=== PATIENT | female | born 1945 | race Caucasian/White ===

== ENCOUNTER → 2016-07-15 | Day surgery (SDC) | payer MEDICARE ==
[~2016-07-15] VITALS: Ht 167.6 cm; Wt 65.9 kg
[~2016-07-15] MED LIST: CYCLOPENTOLATE HCL 1% OPHT SOLN 2 ML BTL ONE; FISH100020; FLURBIPROFEN 0.03% OPHT SOLN 2.5 ML BTL ONE; GABA300C5 PO; GLUC100017 PO; HYALURONIDASE/LIDOCAINE/EPINEPHRINE/BUPIVACAINE 6 ML SYR ONE; HYDR-3583 PO; LIDOCAINE HCL 1% 30 ML VIAL ONE; METF500T PO; MULTTAB67 PO; PANT40TA3 PO; PHENYLEPHRINE HCL 10% OPTH SOLN 5 ML BTL ONE; PROPARACAINE HCL 0.5% OPHT SOLN 15 ML BTL ONE; PROPOFOL 200 MG/20 ML AMP ONE; SODIUM CHLORID 0.9% 500 ML INJ 500 ML ONE; TROPICAMIDE 1% OPHT SOLN 15 ML BTL ONE; VITA500C3 CHEW; VITA60003 PO; VITATAB11; [UNRECOGNIZED DRUG - CODE] PO
[2016-07-15 09:28] VITALS: BP 125/77; PULSE 61; RESP 18; TEMP 97.7; O2SAT 96
[2016-07-15 09:35] VITALS: PULSE 60
[2016-07-15] MEDS: TOBRAMYCIN/DEXAMETHASONE OPTH OINT 3.5 GM TUBE ONE ×2 (10:12→10:25)
[2016-07-15 11:05] VITALS: BP 118/73; PULSE 64; RESP 16; TEMP 98; O2SAT 99
--- NOTE | 2016-07-17 15:01 | MP ---
cc: DIONICIO SEGOVIA MD DATE OF SURGERY: 07/15/2016 [facility] #[id number] PREOPERATIVE DIAGNOSIS: Visually significant cataract right eye. POSTOPERATIVE DIAGNOSIS: Visually significant cataract right eye. OPERATION: Phacoemulsification with posterior chamber lens implantation, right eye. SURGEON: Dionicio Segovia MD ANESTHESIA: Retrobulbar with MAC. COMPLICATIONS: None. PROCEDURE: After informed consent was obtained, the patient was brought into the operative suite and placed on appropriate monitors by the Anesthesia Service. The patient had received a prior retrobulbar injection of local anesthetic by the Anesthesia Service in the holding area. The patient's operative eye was then prepped and draped in the usual sterile fashion. A wire lid speculum was placed. A paracentesis incision was made in the peripheral cornea with a 1 mm aminata keratome. The anterior chamber was filled with viscoelastic. The anterior chamber was then entered through a stepped, clear corneal incision using a sharp 3 mm aminata keratome. A circular tear capsulorrhexis was then made with a bent needle cystitome. Following hydrodissection of the lens nucleus with balanced saline, phaco-emulsification of the nucleus was performed using a modified chopping technique. The remaining cortex was removed with irrigation/aspiration. The prior two procedures were both performed using the handpieces of the [employer] phaco unit. The capsular bag was then filled with viscoelastic. The intraocular lens was then injected into the capsular bag and positioned. The type of intraocular lens and its power can be found elsewhere in this chart. The remaining viscoelastic was then removed from the anterior chamber with the IA handpiece. The anterior chamber was reformed with balanced saline. The wound was then closed securely with stromal hydration. It was found to be watertight to an intraocular pressure of at least 30 mmHg by palpation. A small amount of balanced salt solution was then removed through the paracentesis site and the intraocular pressure at the end of the case was approximately 20 by palpation. All drapes were then removed. TobraDex ointment was then placed in the eye, which was closed beneath a semi-pressure patch dressing. The patient tolerated this procedure well and left the operating room awake and alert. The patient is to follow-up in my office in the morning. MD JANICE Fleming/BJF /10:32 AM /3:00 PM
== END | disposition home or self-care (01) ==
LOC: PHSDC 08:30
PROVIDERS: ATTEND Optometrist Occupational Vision
DX: H25.811 Combined forms of age-related cataract, right eye (principal)
CPT/HCPCS: 00142; 66984; J7040; V2632

== ENCOUNTER → 2016-08-26 | Day surgery (SDC) | payer MEDICARE ==
[~2016-08-26] VITALS: Ht 167.6 cm; Wt 65.9 kg
[~2016-08-26] MED LIST changes: -LIDOCAINE HCL 1% 30 ML VIAL ONE; +LIDOCAINE HCL 1% PF 30 ML VIAL ONE; +MIDAZOLAM HCL 2 MG/2 ML VIAL ONE
[2016-08-26 07:33] VITALS: BP 142/90; PULSE 69; RESP 20; TEMP 97.4; O2SAT 100
[2016-08-26 07:48] VITALS: PULSE 70
[2016-08-26] MEDS: TOBRAMYCIN/DEXAMETHASONE OPTH OINT 3.5 GM TUBE ONE ×2 (08:47→09:05)
[2016-08-26 09:32] VITALS: BP 132/87; PULSE 75; RESP 16; TEMP 97; O2SAT 98
--- NOTE | 2016-08-26 13:38 | MP ---
cc: DIONICIO SEGOVIA M.D. [facility] #[id number] DATE OF SURGERY 08/26/2016 PREOPERATIVE DIAGNOSIS Visually significant cataract left eye. POSTOPERATIVE DIAGNOSIS Visually significant cataract left eye. OPERATION Phacoemulsification with posterior chamber lens implantation, left eye. SURGEON Dionicio Segovia MD ANESTHESIA Retrobulbar with MAC. COMPLICATIONS None PROCEDURE After informed consent was obtained, the patient was brought into the operative suite and placed on appropriate monitors by the Anesthesia Service. The patient had received a prior retrobulbar injection of local anesthetic by the Anesthesia Service in the holding area. The patient's operative eye was then prepped and draped in the usual sterile fashion. A wire lid speculum was placed. A paracentesis incision was made in the peripheral cornea with a 1 mm aminata keratome. The anterior chamber was filled with viscoelastic. The anterior chamber was then entered through a stepped, clear corneal incision using a sharp 3 mm aminata keratome. A circular tear capsulorrhexis was then made with a bent needle cystitome. Following hydrodissection of the lens nucleus with balanced saline, phacoemulsification of the nucleus was performed using a modified chopping technique. The remaining cortex was removed with irrigation/aspiration. The prior two procedures were both performed using the handpieces of the [employer] phaco unit. The capsular bag was then filled with viscoelastic. The intraocular lens was then injected into the capsular bag and positioned. The type of intraocular lens and its power can be found elsewhere in this chart. The remaining viscoelastic was then removed from the anterior chamber with the IA handpiece. The anterior chamber was reformed with balanced saline. The wound was then closed securely with stromal hydration. It was found to be watertight to an intraocular pressure of at least 30 mmHg by palpation. A small amount of balanced salt solution was then removed through the paracentesis site and the intraocular pressure at the end of the case was approximately 20 by palpation. All drapes were then removed. TobraDex ointment was then placed in the eye, which was closed beneath a semi-pressure patch dressing. The patient tolerated this procedure well and left the operating room awake and alert. The patient is to follow-up in my office in the morning. MD JANICE Fleming/JESSICA /9:50 AM /1:30 PM
== END | disposition home or self-care (01) ==
LOC: PHSDC 06:38
PROVIDERS: ATTEND Optometrist Occupational Vision
DX: H25.12 Age-related nuclear cataract, left eye (principal)
CPT/HCPCS: 00142; 66984; J7040; V2632; J2250

== ENCOUNTER → 2017-01-10 | Outpatient (CLI) | payer MEDICARE ==
[~2017-01-10] MED LIST changes: +CYCL1TAB29 PO; -CYCLOPENTOLATE HCL 1% OPHT SOLN 2 ML BTL ONE; -FLURBIPROFEN 0.03% OPHT SOLN 2.5 ML BTL ONE; -HYALURONIDASE/LIDOCAINE/EPINEPHRINE/BUPIVACAINE 6 ML SYR ONE; +HYDR-3535 PO; -LIDOCAINE HCL 1% PF 30 ML VIAL ONE; -MIDAZOLAM HCL 2 MG/2 ML VIAL ONE; +PHEN0.4T PO; -PHENYLEPHRINE HCL 10% OPTH SOLN 5 ML BTL ONE; -PROPARACAINE HCL 0.5% OPHT SOLN 15 ML BTL ONE; -PROPOFOL 200 MG/20 ML AMP ONE; -SODIUM CHLORID 0.9% 500 ML INJ 500 ML ONE; -TROPICAMIDE 1% OPHT SOLN 15 ML BTL ONE
== END ==
LOC: CPRE 12:43
PROVIDERS: ATTEND Neurological Surgery
DX: M51.36 Other intervertebral disc degeneration, lumbar region (principal); M43.16 Spondylolisthesis, lumbar region; M48.061 Spinal stenosis, lumbar region without neurogenic claudication; M99.83 Other biomechanical lesions of lumbar region; M41.9 Scoliosis, unspecified

== ENCOUNTER 2017-01-12 06:01 | Inpatient (IN) | payer MEDICARE ==
[~2017-01-12] VITALS: Ht 167.6 cm; Wt 70.2 kg
[~2017-01-12 06:01] MED LIST changes: -CYCL1TAB29 PO; -HYDR-3535 PO; -PHEN0.4T PO
[2017-01-12] MEDS ORDERED: SODIUM CHLOR 0.9% 1000 ML INJ 1,000 ML IV SCH (06:45)
[2017-01-12] MEDS ORDERED: CHLORHEXIDINE GLUCONATE 2 % 1 PACK (2 CLOTHS) TOPICAL PRN (06:45)
[2017-01-12] MEDS ORDERED: POVIDONE IODINE 5% (ANTISEPSIS KIT) 4 APPLICATIONS EACH NARE PRN (06:45)
[2017-01-12] MEDS ORDERED: METOPROLOL TARTRATE 25 MG TAB PO PRN (06:45)
[2017-01-12] MEDS ORDERED: SODIUM CHLORID 0.9% 500 ML IV PRN (06:45)
[2017-01-12] MEDS ORDERED: INSULIN HUMAN REGULAR 1,000 UNITS/10 ML VIAL SQ PRN (06:45)
[2017-01-12] MEDS ORDERED: LACTATED RINGER'S 1000 ML IV PRN (06:45)
[2017-01-12] MEDS ORDERED: VANCOMYCIN HCL 1000 MG ON-CALL/NS 250 ML IV SCH ×2 (06:45)
[2017-01-12] MEDS ORDERED: ACETAMINOPHEN 1000 MG/100 ML 100 ML IV ONE (06:57)
[2017-01-12] MEDS ORDERED: VANCOMYCIN HCL 1000 MG VIAL ONE ×2 (07:19→07:20)
[2017-01-12] MEDS ORDERED: GELFOAM SIZE 100 ONE (07:19)
[2017-01-12] MEDS ORDERED: THROMBIN (TOPICAL) 5,000 UNIT VIAL ONE (07:19)
[2017-01-12] MEDS ORDERED: BUPIVACAINE/EPINEPHRINE 0.5% 50 ML VIAL ONE (07:19)
[2017-01-12] MEDS ORDERED: FAMOTIDINE 20 MG/2 ML VIAL ONE (07:20)
[2017-01-12] MEDS ORDERED: ARTIFICIAL TEARS OPTH OINT 3.5 APPLIC/3.5 GM TUBO ONE (07:20)
[2017-01-12] MEDS ORDERED: PROPOFOL 200 MG/20 ML AMP IV ONE (12:00)
[2017-01-12] MEDS ORDERED: ONDANSETRON HCL 4 MG/2 ML VIAL IV PUSH ONE (12:00)
[2017-01-12] MEDS ORDERED: PHENYLEPH/NS 1000 MCG/10 ML SYR IV ONE (12:00)
[2017-01-12] MEDS ORDERED: GLYCOPYRROLATE 1 MG/5 ML SYRINGE IV PUSH ONE (12:00)
[2017-01-12] MEDS ORDERED: NEOSTIGMINE 3 MG/3 ML SYR IV ONE (12:00)
[2017-01-12] MEDS ORDERED: DEXAMETHASONE SOD PHOS 4 MG/ML VIAL IV ONE (12:00)
[2017-01-12] MEDS ORDERED: ROCURONIUM INJ 50 MG/5 ML SYRINGE IV PUSH ONE (12:00)
[2017-01-12] MEDS ORDERED: LIDOCAINE HCL 1% PF 5 ML AMPULE OTHER ONE (12:00)
[2017-01-12] MEDS ORDERED: MIDAZOLAM HCL 2 MG/2 ML VIAL IV ONE (12:00)
[2017-01-12] MEDS ORDERED: DO NOT ADM ANY ANTICOAGULANT DRUGS PRN (12:23)
--- NOTE | 2017-01-12 12:41 | PD.OP ---
cc: Jordan Ascencio MD Operative Report Date of Surgery: Jan 12, 2017 Preoperative Diagnosis: Intractable low back pain with neurogenic claudication and radiculopathy; severe L4-5 spinal stenosis with degenerative disc disease, scoliosis and spondylolisthesis Postoperative Diagnosis: Same Procedure: Lumbar L4-5 transforaminal interbody fusion; L4 and L5 decompressive laminectomy with facetectomy and microdiscectomy; L4-5 pedicle screw fixation; L4-5 interbody cage placement; microsurgical technique Anesthesia: Gen. endotracheal by Maxine Jara Surgeon: Bobby Mendez M.D. Tie Up Worker(s): Remington Morales Operation and Findings: Following initiation of general endotracheal anesthesia, the patient had a Monique catheter placed along with sequential compression devices. A gram of vancomycin was administered intravenously and he was turned in a prone position on a Eddie frame, on a Nazario table, and all pressure points adequately padded. The lumbosacral region was then prepped with Chloraprep and sterilely draped with Ioban along the usual sterile draping. A right paraspinal skin incision was then made extending from the L4-L5 level after infiltrating the skin with 0.5% Marcaine with epinephrine solution extending down through the fascia. The muscle fibers were split using avascular fatty plane and detached from the underlying facets, transverse process and lateral portion of lamina on the right side and a self-retaining retractor used for exposure. Intraoperative fluoroscopy was also used for level of confirmation along with microscope magnification for further dissection. There was significant facet and ligamentum flavum hypertrophy noted at the L4-5 levels along with scoliosis and spondylolisthesis. Right L4-5 facet was resected with a drill bit along with the lamina and there was severe foraminal and lateral recess stenosis from hypertrophied ligamentum flavum and facet which were decompressed bilaterally through the unilateral approach. There was significant disc height collapse along with disc protrusion also leading to the foraminal stenosis. Epidural hemostasis was achieved with bipolar cautery and Gelfoam with thrombin. Subsequently entered into the disc space at the L4-5 level with a # 15 blade and roxana were used for discectomy. I then placed PEEK cage packed with local autograft bone and more local autograft bone was packed adjacent to the cage in interspace for added interbody fusion. With placement of the cage, I was able to distract the interspace and opened up the foramen further bilaterally. Subsequently in order to facilitate the fusion and provide stabilization, pedicle screw fixation was undertaken using Weldon spine screws with entry points at the right L4-5 levels at the junction of the transverse process and facet. Subsequently using AP and lateral fluoroscopy tap and screw placement. The screws were then connected with a raf and locked in place with caps. The construct appeared very secure at this point. The area was then copiously irrigated with Vancomycin solution and powder. The retractors were removed and the bipolar cautery used for hemostasis. The muscle fascia was then approximated using 2-0 Vicryl interrupted stitches and then 3-0 Vicryl subcuticular stitches also placed in interrupted fashion. The final skin closure was completed with Mastisol and Steri-Strips. A sterile dressing was then applied. The patient then turned in supine position, extubated and taken to recovery room. There were no intraoperative complications. All sponge and needle counts were correct at the end of procedure. Estimated blood loss about 50 ml. Bobby Mendez MD Jan 12, 2017 12:41
[2017-01-12] MEDS ORDERED: CYCLOBENZAPRINE HCL 10 MG TAB PO PRN (12:45)
[2017-01-12] MEDS ORDERED: RESP: ALBUTEROL 2.5 MG/3 ML NEB (PRN) NEB (12:45)
[2017-01-12] MEDS ORDERED: ALUMINUM/MAGNESIUM/SIMETH 30 ML CUP PO PRN (12:45)
[2017-01-12] MEDS ORDERED: ZOLPIDEM TARTRATE 5 MG TAB PO PRN (12:45)
[2017-01-12] MEDS ORDERED: cloNIDine HCL 0.1 MG TAB PO PRN (12:45)
[2017-01-12] MEDS ORDERED: NALOXONE HCL 0.4 MG/ML AMP IV PUSH PRN (12:45)
[2017-01-12] MEDS ORDERED: SODIUM CHLORIDE 0.9% FLUSH 10 ML FLUSH IV FLUSH PRN (12:45)
[2017-01-12] MEDS ORDERED: CALCIUM GLUCONATE INJ 1 GM in SODIUM CHLORIDE 0.9% INJ 100 ML IV PRN (12:45)
[2017-01-12] MEDS ORDERED: MENTHOL LOZENGE BUCCAL PRN (12:45)
[2017-01-12] MEDS ORDERED: POTASSIUM CHLOR 20 MEQ PREMIX 100 ML IV PRN (12:45)
[2017-01-12] MEDS ORDERED: MAGNESIUM SULFATE INJ 2 GM in SODIUM CHLORIDE 0.9% INJ 100 ML IV PRN (12:45)
[2017-01-12] MEDS ORDERED: ONDANSETRON HCL 4 MG/2 ML VIAL IV PUSH PRN (12:45)
[2017-01-12] MEDS ORDERED: ACETAMINOPHEN 325 MG TAB PO PRN (12:45)
[2017-01-12] MEDS ORDERED: GLUCAGON 1 MG/ML VIAL OTHER PRN (12:45)
[2017-01-12] MEDS ORDERED: diphenhydrAMINE HCL 50 MG/ML VIAL IV PUSH PRN (12:45)
[2017-01-12] MEDS ORDERED: PROMETHAZINE INJ 25 MG/ML VIAL IM PRN (12:45)
[2017-01-12] MEDS: NS + KCL 20 MEQ INJ 1,000 ML IV SCH ×2 (13:03→23:00)
[2017-01-12] MEDS ORDERED: MORPHINE SULFATE 30 MG/30 ML PCA IV SCH (13:15)
[2017-01-12] MEDS ORDERED: DEXTROSE 50% IN WATER 50 ML SYRINGE IV PUSH PRN (13:15)
[2017-01-12] MEDS ORDERED: ceFAZolin INJ 1,000 MG VIAL ONE (13:18)
[2017-01-12] MEDS ORDERED: SODIUM CHLORIDE 0.9% INJ 100 ML ONE (13:18)
[2017-01-12 13:59] LABS: HEMATOCRIT 36.5 % (35.0-46.0); MEAN CELL VOLUME 92.3 FL (80.0-100.0); MEAN CORPUSCULAR HEMOGLOBIN 30.5 PG (27.0-34.0); MEAN CORPUSCULAR HGB CONC 33.1 % (32.0-36.0); PLATELET COUNT 170 TH/MM3 (150-450); RED BLOOD COUNT 3.96 MIL/MM3 (4.00-5.30); RED CELL DISTRIBUTION WIDTH 14.5 % (11.6-17.2); REVIEW FLAG FINAL; WHITE BLOOD COUNT 6.3 TH/MM3 (4.0-11.0)
[2017-01-12] MEDS: PCA - TOTAL MG MORPHINE DELIVERED PER SHIFT SCH ×2 (14:00→21:19)
[2017-01-12 14:10] LABS: POTASSIUM 4.5 MEQ/L (3.5-5.1)
[2017-01-12] MEDS: ACETAMINOPHEN/HYDROcodone 325 MG/10 MG TAB PO PRN (15:00)
--- NOTE | 2017-01-12 15:10 | RADRPT ---
EXAM DATE/TIME: 01/12/2017 08:58 [facility] COMPARISON: No previous studies available for comparison. INDICATIONS : Fusion L4,L5 with screw and raf placement. MEDICAL HISTORY : None. SURGICAL HISTORY : None. ENCOUNTER: Initial ACUITY: 1 day PAIN SCORE: Non-responsive. LOCATION: Lumbar spine. FINDINGS: There is anterior and posterior fusion with pedicle screws and interbody graft from L4-L5. CONCLUSION: 1. Postsurgical changes as above. Jose Landin MD on January 12, 2017 at 15:08 Board Certified Radiologist. This report was verified electronically.
[2017-01-12] MEDS: GABAPENTIN 300 MG CAP PO SCH ×2 (15:13→18:03)
[2017-01-12 16:33] VITALS: BP 151/71; PULSE 77; RESP 20; TEMP 97.4; O2SAT 100
[2017-01-12] MEDS: INSULIN NovoLIN REGULAR SUPPLEMENTAL SCALE SQ SCH ×2 (17:00→21:00)
[2017-01-12 20:26] VITALS: BP 131/67; PULSE 71; RESP 18; TEMP 97.7; O2SAT 98
[2017-01-12] MEDS: DOCUSATE SODIUM 100 MG CAP PO SCH (21:00)
[2017-01-12] MEDS: SODIUM CHLORIDE 0.9% FLUSH 10 ML FLUSH IV FLUSH SCH (21:00)
[2017-01-13 01:59] VITALS: BP 128/67; PULSE 70; RESP 18; TEMP 97.7; O2SAT 99
[2017-01-13] MEDS: ACETAMINOPHEN/HYDROcodone 325 MG/10 MG TAB PO PRN ×3 (03:45→19:55)
[2017-01-13 05:35] VITALS: BP 115/65; PULSE 71; RESP 20; TEMP 99.5; O2SAT 100
[2017-01-13] MEDS: PCA - TOTAL MG MORPHINE DELIVERED PER SHIFT SCH (05:39)
[2017-01-13] MEDS: INSULIN NovoLIN REGULAR SUPPLEMENTAL SCALE SQ SCH ×4 (08:00→21:00)
[2017-01-13] MEDS: POLYETHYLENE GLYCOL 17 GM PKG PO SCH (09:00)
[2017-01-13] MEDS: SODIUM CHLORIDE 0.9% FLUSH 10 ML FLUSH IV FLUSH SCH ×2 (09:00→21:00)
--- NOTE | 2017-01-13 09:48 | HHI.NSPN ---
(Frederic Baez) History Chief Complaint: Incisional pain and pain in posterolateral LEs. (Frederic Baez) Interval History 01/13/17: Pt underwent a L4/L5 decompressive laminectomy with facetectomy and microdiscectomy with TLIF with cage and pedicle screw fixation. She states yesterday was a good day and today she is much more painful. She complains of incisional back pain radiating into the posterolateral thighs more than the calfs. She states she doesn't think she can get oob today with PT. Currently we are waiting for back brace. (Frederic Baez) Review of Systems General: Negative for: fever, chills, insomnia Respiratory: Negative for: shortness of breath, cough, sputum Cardiovascular: Negative for: chest pain Gastrointestinal: Negative for: nausea, vomitting, diarrhea, constipation ( Frederic Baez) Exam Results Vital Signs Date Time Temp Pulse Resp B/P (MAP) Pulse Ox O2 Delivery O2 Flow Rate FiO2 01/13/17 05:35 99.5 71 20 115/65 (82) 100 01/12/17 15:45 Room Air 01/12/17 14:00 2 Intake and Output 01/13/17 01/13/17 01/14/17 08:00 16:00 00:00 Output Total 820 ml Balance -820 ml (Frederic Baez) Physical Examination General: Pt resting in bed and at times gets spasms in her legs and appears uncomfortable. Resp: CTA bilaterally Heart: NSR no murmurs Abd: Soft positive bs Skin: Pt log rolled incision clean and dry. No signs of infection. New bandage placed. Muscle: Moves LEs with right 4/5 EHL weakness otherwise 5/5 although laying in bed. Neuro: Pt awake and alert. Follows commands well. Speech clear and appropriate. (Frederic Baez) Lab, Micro, Other Results Last Impressions Lumbar Spine X-Ray 01/12/17 0000 Signed Impressions: Service Date/Time: Thursday, January 12, 2017 08:58 - CONCLUSION: 1. Postsurgical changes as above. Jose Landin MD Laboratory Tests Test 01/12/17 13:45 White Blood Count 6.3 TH/MM3 Red Blood Count 3.96 MIL/MM3 Hemoglobin 12.1 GM/DL Hematocrit 36.5 % Mean Corpuscular Volume 92.3 FL Mean Corpuscular Hemoglobin 30.5 PG Mean Corpuscular Hemoglobin Concent 33.1 % Red Cell Distribution Width 14.5 % Platelet Count 170 TH/MM3 Mean Platelet Volume 8.6 FL Blood Urea Nitrogen 16 MG/DL Creatinine 0.99 MG/DL Random Glucose 124 MG/DL Calcium Level 8.6 MG/DL Sodium Level 143 MEQ/L Potassium Level 4.5 MEQ/L Chloride Level 109 MEQ/L Carbon Dioxide Level 30.0 MEQ/L Anion Gap 4 MEQ/L Estimat Glomerular Filtration Rate 55 ML/MIN (Frederic Baez) Medical Decision Making Impression and Plan A: 71 y/o FM s/p L4 and L5 decompressive laminectomy with facetectomy and microdiscectomy with cage and pedicle screw fixation. P: Continue with pain control Encouraged pt to ask for muscle relaxants to help with muscle spasms. Continue with Neurontin tid. Continue with LE strengthening exercises. If brace arrives possibly try to get up if pain better controlled. (Frederic Baez) Attending Statement The exam, history, and the medical decision-making described in the above note were completed with the assistance of the mid-level provider. I reviewed and agree with the findings presented. I attest that I had a [id number] encounter with the patient on the same day, and personally performed and documented my assessment and findings in the medical record. Relates incisional pain and does not want to use a morphine ADOLESCENT COORDINATOR as it does not seem to help. We'll DC ADOLESCENT COORDINATOR and placed on scheduled the Lortab when necessary Dilaudid for breakthrough pain. (Bobby Mendez MD) Frederic Baez Jan 13, 2017 09:48 Bobby Mendez MD Jan 13, 2017 16:18
[2017-01-13] MEDS: GABAPENTIN 300 MG CAP PO SCH ×3 (09:49→18:06)
[2017-01-13] MEDS: PANTOPRAZOLE SOD 40 MG DELAYED RELEASE TAB PO SCH (09:49)
[2017-01-13] MEDS: MULTIVITAMIN TAB PO SCH (09:49)
[2017-01-13] MEDS: DOCUSATE SODIUM 100 MG CAP PO SCH ×2 (09:49→21:06)
[2017-01-13] MEDS ORDERED: ACETAMINOPHEN/HYDROcodone 325 MG/10 MG TAB PO SCH (11:00)
[2017-01-13] MEDS ORDERED: HYDROmorphone HCL PF 1 MG/ML VIAL IV PUSH PRN ×2 (11:30→16:00)
[2017-01-13] MEDS: CYCLOBENZAPRINE HCL 10 MG TAB PO SCH ×2 (11:59→18:06)
[2017-01-13] MEDS ORDERED: HYDROmorphone HCL PF 1 MG/ML VIAL IV PUSH ONE (12:00)
[2017-01-13] MEDS: ACETAMINOPHEN/HYDROcodone 325 MG/10 MG TAB PO SCH ×3 (12:00→21:07)
[2017-01-13 12:16] VITALS: BP 131/59; PULSE 76; RESP 20; TEMP 97.6; O2SAT 99
[2017-01-13 16:19] VITALS: BP 146/70; PULSE 84; RESP 20; TEMP 98.1; O2SAT 95
[2017-01-13 17:54] VITALS: O2SAT 95
[2017-01-13 20:15] VITALS: BP 133/65; PULSE 68; RESP 18; TEMP 98.4; O2SAT 97
[2017-01-14] MEDS: GABAPENTIN 300 MG CAP PO SCH ×4 (00:36→17:40)
[2017-01-14] MEDS: ACETAMINOPHEN/HYDROcodone 325 MG/10 MG TAB PO SCH ×6 (00:37→20:55)
[2017-01-14 00:57] VITALS: BP 161/73; PULSE 76; RESP 16; TEMP 99.4; O2SAT 95
[2017-01-14] MEDS: ACETAMINOPHEN/HYDROcodone 325 MG/10 MG TAB PO PRN (02:15)
[2017-01-14] MEDS: CYCLOBENZAPRINE HCL 10 MG TAB PO SCH ×3 (02:15→17:40)
[2017-01-14 06:00] VITALS: BP 143/73; PULSE 75; RESP 16; TEMP 97.6; O2SAT 96
[2017-01-14] MEDS: MULTIVITAMIN TAB PO SCH (08:46)
[2017-01-14] MEDS: metFORMIN HCL 500 MG TAB PO SCH (08:47)
[2017-01-14] MEDS: PANTOPRAZOLE SOD 40 MG DELAYED RELEASE TAB PO SCH (08:47)
[2017-01-14] MEDS: SODIUM CHLORIDE 0.9% FLUSH 10 ML FLUSH IV FLUSH SCH ×2 (08:47→20:55)
[2017-01-14] MEDS: INSULIN NovoLIN REGULAR SUPPLEMENTAL SCALE SQ SCH ×4 (08:47→19:46)
[2017-01-14] MEDS: DOCUSATE SODIUM 100 MG CAP PO SCH ×2 (08:47→20:55)
[2017-01-14] MEDS: POLYETHYLENE GLYCOL 17 GM PKG PO SCH (08:48)
[2017-01-14 08:52] VITALS: BP 118/63; PULSE 70; RESP 20; TEMP 98.2; O2SAT 96
[2017-01-14] MEDS ORDERED: HYDR-3535 PO (09:01)
[2017-01-14] MEDS ORDERED: CYCL1TAB29 PO (09:01)
--- NOTE | 2017-01-14 12:04 | HHI.NSPN ---
(Frederic Baez) History Chief Complaint: Incisional pain and pain in posterolateral LEs. (Frederic Baez) Interval History 01/13/17: Pt underwent a L4/L5 decompressive laminectomy with facetectomy and microdiscectomy with TLIF with cage and pedicle screw fixation. She states yesterday was a good day and today she is much more painful. She complains of incisional back pain radiating into the posterolateral thighs more than the calfs. She states she doesn't think she can get oob today with PT. Currently we are waiting for back brace. 01/14/17: Pt awake and alert. States she is feeling better today. She continues to have a lot of pain but better controlled today than yesterday. She agrees she needs rehab secondary to pain and deconditioning with risk of falls. She states she has pain radiating in the posterolateral LEs but controlled better. (Frederic Baez) Review of Systems General: Negative for: fever, chills, insomnia Respiratory: Negative for: shortness of breath, cough, sputum Cardiovascular: Negative for: chest pain Gastrointestinal: Negative for: nausea, vomitting, diarrhea, constipation ( Frederic Baez) Exam Results Vital Signs Date Time Temp Pulse Resp B/P (MAP) Pulse Ox O2 Delivery O2 Flow Rate FiO2 01/14/17 08:52 98.2 70 20 118/63 (81) 96 01/12/17 15:45 Room Air 01/12/17 14:00 2 Intake and Output 01/14/17 01/14/17 01/15/17 08:00 16:00 00:00 Output Total 2600 ml Balance -2600 ml (Frederic Baez) Physical Examination General: Pt resting in bed and at times gets spasms in her legs when trying to move. Resp: CTA bilaterally Heart: NSR no murmurs Abd: Soft positive bs Skin: Pt sitting up in chair with brace in place. Discussed with RN will change when back in bed. Muscle: Moves LEs with right 4/5 EHL weakness otherwise 5/5. She is very slow and painful going to sitting position. Neuro: Pt awake and alert. Follows commands well. Speech clear and appropriate. (Frederic Baez) Lab, Micro, Other Results Last Impressions Lumbar Spine X-Ray 01/12/17 0000 Signed Impressions: Service Date/Time: Thursday, January 12, 2017 08:58 - CONCLUSION: 1. Postsurgical changes as above. Jose Landin MD (Frederic Baez) Medical Decision Making Impression and Plan A: 71 y/o FM s/p L4 and L5 decompressive laminectomy with facetectomy and microdiscectomy with cage and pedicle screw fixation. P: Continue with pain control. Continue with PT Rehab placement tomorrow. Orders written. (Frederic Baez) Attending Statement The exam, history, and the medical decision-making described in the above note were completed with the assistance of the mid-level provider. I reviewed and agree with the findings presented. I attest that I had a [id number] encounter with the patient on the same day, and personally performed and documented my assessment and findings in the medical record. (Bobby Mendez MD) Frederic Baez Jan 14, 2017 12:04 Bobby Mendez MD Jan 14, 2017 12:39
[2017-01-14 12:52] VITALS: BP 92/57; PULSE 77; RESP 20; TEMP 97.3; O2SAT 94
[2017-01-14 17:08] VITALS: BP 140/70; PULSE 85; RESP 20; TEMP 98; O2SAT 94
[2017-01-14 20:29] VITALS: BP 116/72; PULSE 81; RESP 18; TEMP 97.5; O2SAT 96
[2017-01-15 00:12] VITALS: BP 160/77; PULSE 88; RESP 18; TEMP 98.1; O2SAT 96
[2017-01-15] MEDS: GABAPENTIN 300 MG CAP PO SCH ×4 (02:11→17:51)
[2017-01-15] MEDS: ACETAMINOPHEN/HYDROcodone 325 MG/10 MG TAB PO SCH ×6 (02:11→21:36)
[2017-01-15 04:00] VITALS: BP 138/88; PULSE 87; RESP 18; TEMP 98.4; O2SAT 97
[2017-01-15] MEDS: ACETAMINOPHEN/HYDROcodone 325 MG/10 MG TAB PO PRN (04:05)
[2017-01-15] MEDS: CYCLOBENZAPRINE HCL 10 MG TAB PO SCH ×3 (04:05→17:51)
[2017-01-15 08:00] VITALS: BP 100/58; PULSE 79; RESP 16; TEMP 98.2; O2SAT 96
[2017-01-15] MEDS: MAGNESIUM HYDROXIDE SUSP 30 ML CUP PO PRN (09:03)
[2017-01-15] MEDS: MULTIVITAMIN TAB PO SCH (09:03)
[2017-01-15] MEDS: DOCUSATE SODIUM 100 MG CAP PO SCH (09:03)
[2017-01-15] MEDS: POLYETHYLENE GLYCOL 17 GM PKG PO SCH (09:03)
[2017-01-15] MEDS: PANTOPRAZOLE SOD 40 MG DELAYED RELEASE TAB PO SCH (09:03)
[2017-01-15] MEDS: INSULIN NovoLIN REGULAR SUPPLEMENTAL SCALE SQ SCH ×4 (09:04→21:00)
[2017-01-15] MEDS: SODIUM CHLORIDE 0.9% FLUSH 10 ML FLUSH IV FLUSH SCH ×2 (09:04→21:36)
[2017-01-15] MEDS: metFORMIN HCL 500 MG TAB PO SCH (09:05)
[2017-01-15 12:00] VITALS: BP 106/63; PULSE 78; RESP 16; TEMP 98.4; O2SAT 96
[2017-01-15] MEDS ORDERED: MAGNESIUM CITRATE SOLN 300 ML BTL PO ONE ×2 (13:15→16:15)
[2017-01-15 16:00] VITALS: BP 119/77; PULSE 79; RESP 18; TEMP 97.6; O2SAT 94
[2017-01-15] MEDS ORDERED: BISACODYL 10 MG SUPP RECTAL ONE (16:15)
--- NOTE | 2017-01-15 17:08 | HHI.NSPN ---
History Chief Complaint: Incisional pain and pain in posterolateral LEs. Interval History Postop L4-5 TLIF on 01/13/17. Complains of significant back pain. Intermittent aching, and numbness paresthesias of the lower extremities unchanged compared to preoperatively. No complaint of bowel or bladder dysfunction. Exam Results Vital Signs Date Time Temp Pulse Resp B/P (MAP) Pulse Ox O2 Delivery O2 Flow Rate FiO2 01/15/17 16:00 97.6 79 18 119/77 (91) 94 01/12/17 15:45 Room Air 01/12/17 14:00 2 Intake and Output 01/15/17 01/15/17 01/16/17 08:00 16:00 00:00 Intake Total 960 ml Output Total 340 ml Balance -340 ml 960 ml Physical Examination General: Pt resting in bed and at times gets spasms in her legs when trying to move. Resp: CTA bilaterally Heart: NSR no murmurs Abd: Soft positive bs Skin: Dressing dry and intact Muscle: Good strength on major flexion and extension groups in the lower extremities. Complains of low back pain with proximal lower extremity motor testing Sensation intact light touch throughout the lower extremities Neuro: Pt awake and alert. Follows commands well. Speech clear and appropriate. Medical Decision Making Impression and Plan Impression: Stable neurologic exam following L4 5 interbody fusion. Plan: Discussed with patient Discussed with nursing staff Patient tentatively scheduled for transfer to inpatient rehabilitation today, but has not had a bowel movement which is required for the transfer. Additional medications given. Patient states she takes 2 bottles of mag citrate at home, this was given to her today. Fransisco Chester MD Jan 15, 2017 17:08
[2017-01-15] MEDS: DOCUSATE SODIUM 50 MG/SENNA 8.6 MG TAB PO SCH ×2 (17:39→21:35)
[2017-01-15 20:00] VITALS: BP 146/70; PULSE 84; RESP 20; TEMP 98.4; O2SAT 96
[2017-01-16] VITALS: BP 165/77; PULSE 93; RESP 20; TEMP 97.7; O2SAT 95
[2017-01-16] MEDS: ACETAMINOPHEN/HYDROcodone 325 MG/10 MG TAB PO SCH ×4 (00:23→12:57)
[2017-01-16] MEDS: GABAPENTIN 300 MG CAP PO SCH ×3 (00:23→12:57)
[2017-01-16] MEDS: CYCLOBENZAPRINE HCL 10 MG TAB PO SCH ×2 (03:53→12:56)
[2017-01-16 04:00] VITALS: BP 184/86; PULSE 91; RESP 20; TEMP 98.2; O2SAT 94
[2017-01-16] MEDS: MAGNESIUM HYDROXIDE SUSP 30 ML CUP PO PRN (04:03)
[2017-01-16 06:42] VITALS: BP 157/85; PULSE 94; O2SAT 94
[2017-01-16 08:00] VITALS: BP 157/74; PULSE 89; RESP 20; TEMP 97.3; O2SAT 98
--- NOTE | 2017-01-16 08:20 | RADRPT ---
EXAM DATE/TIME: 01/16/2017 07:58 [facility] COMPARISON: CT ABDOMEN & PELVIS W CONTRAST, November 30, 2014, 16:01. INDICATIONS : Trauma; fall. RADIATION DOSE: 31.92 CTDIvol (mGy) MEDICAL HISTORY : Subarachnoid hemorrhage. SURGICAL HISTORY : Appendectomy. ENCOUNTER: Initial ACUITY: 1 day PAIN SCALE: 5/10 LOCATION: cranial TECHNIQUE: Multiple contiguous axial images were obtained of the head. Using automated exposure control and adj ustment of the mA and/or kV according to patient size, radiation dose was kept as low as reasonably a chievable to obtain optimal diagnostic quality images. DICOM format image data is available electro nically for review and comparison. FINDINGS: CEREBRUM: The ventricles are normal for age. No evidence of midline shift, mass lesion, hemorrhage or acute in farction. No extra-axial fluid collections are seen. POSTERIOR FOSSA: The cerebellum and brainstem are intact. The 4th ventricle is midline. The cerebellopontine angle i s unremarkable. EXTRACRANIAL: The visualized portion of the orbits is intact. SKULL: The calvaria is intact. No evidence of skull fracture. CONCLUSION: 1. No acute intracranial abnormality. Von Becerril MD on January 16, 2017 at 8:18 Board Certified Radiologist. This report was verified electronically.
[2017-01-16] MEDS: INSULIN NovoLIN REGULAR SUPPLEMENTAL SCALE SQ SCH ×2 (08:45→13:01)
[2017-01-16] MEDS: POLYETHYLENE GLYCOL 17 GM PKG PO SCH (08:49)
[2017-01-16] MEDS: PANTOPRAZOLE SOD 40 MG DELAYED RELEASE TAB PO SCH (08:49)
[2017-01-16] MEDS: SODIUM CHLORIDE 0.9% FLUSH 10 ML FLUSH IV FLUSH SCH (08:49)
[2017-01-16] MEDS: DOCUSATE SODIUM 50 MG/SENNA 8.6 MG TAB PO SCH (08:49)
[2017-01-16] MEDS: metFORMIN HCL 500 MG TAB PO SCH (08:49)
[2017-01-16] MEDS: MULTIVITAMIN TAB PO SCH (08:49)
--- NOTE | 2017-01-16 11:14 | RADRPT ---
EXAM DATE/TIME: 01/16/2017 10:56 [facility] COMPARISON: SPINE LUMBAR LTD (AP & LAT), January 12, 2017, 8:58. INDICATIONS : Evaluate for obstruction MEDICAL HISTORY : Subarachnoid hemorrhage SURGICAL HISTORY : Appendectomy. ENCOUNTER: Initial ACUITY: 1 day PAIN SCORE: 0/10 LOCATION: Abdomen FINDINGS: The examination demonstrates gaseous distention of multiple loops of colon. There is stool evident wi thin the rectum. Fecal impaction is not excluded. No air-fluid levels are seen to indicate destruction. No free air is present. There are severe degenerative and scoliotic changes within the lumbar spine. There's been previous fu andreas across the L4-5 level. CONCLUSION: 1. Gaseous distention of the colon with considerable stool in the rectum. This can suggest a fecal im paction. 2. No free air identified. Von Becerril MD on January 16, 2017 at 11:12 Board Certified Radiologist. This report was verified electronically.
[2017-01-16 12:00] VITALS: BP 112/63; PULSE 91; RESP 20; TEMP 97.5; O2SAT 98
--- NOTE | 2017-01-16 13:22 | HHI.NSPN ---
History Chief Complaint: Incisional pain and pain in posterolateral LEs. Interval History Postop L4-5 TLIF on 01/13/17. Complains of significant back pain. Intermittent aching, and numbness paresthesias of the lower extremities unchanged compared to preoperatively. No complaint of bowel or bladder dysfunction. 01/16/17: The patient now trying to get out of bed at around 6:00 this morning. She hit her forehead. No loss of consciousness. No complaint of headache nausea vomiting speech difficulty memory loss blurred vision diplopia. No new pain weakness or numbness in the extremities. She continues to have some aching and cramping in the lower extremity somewhat diffuse which was present before surgery but seems a little worse afterwards. He will follow bladder dysfunction reported. Exam Results Vital Signs Date Time Temp Pulse Resp B/P (MAP) Pulse Ox O2 Delivery O2 Flow Rate FiO2 01/16/17 06:42 94 157/85 (109) 94 01/16/17 04:00 98.2 20 01/12/17 15:45 Room Air 01/12/17 14:00 2 Physical Examination General: Pt resting in bed and at times gets spasms in her legs when trying to move. Resp: CTA bilaterally Heart: NSR no murmurs Abd: Soft positive bs Skin: Dressing dry and intact. Small abrasion left forehead Muscle: Good strength on major flexion and extension groups in the lower extremities. Complains of low back pain with proximal lower extremity motor testing Sensation intact light touch throughout the lower extremities Neuro: Pt awake and alert. Follows commands well. Speech clear and appropriate. Lab, Micro, Other Results 01/16/[address] scan head images reviewed by the undersigned. No significant abnormalities Head CT 01/16/17 0000 Signed Impressions: Service Date/Time: Monday, January 16, 2017 07:58 - CONCLUSION: 1. No acute intracranial abnormality. Von Becerril MD Medical Decision Making Impression and Plan Impression: Stable neurologic exam following L4 5 interbody fusion. No new problems following a fall this morning. CT scan had normal. She had a bowel movement today. Plan: Discussed with patient Discussed with nursing staff She is stable for discharge to rehabilitation today. Signs and symptoms to watch for were discussed. Fransisco Chester MD Jan 16, 2017 13:22
== END 2017-01-16 15:41 | DRG 460 ==
LOC: HSDI 06:01 → N05A 16:13
PROVIDERS: ADMIT Neurological Surgery; ATTEND Neurological Surgery
PROC: 0SB20ZZ Excision of Lumbar Vertebral Disc, Open Approach (ICD-10-PCS; 2017-01-12)
PROC: 0SG00AJ Fusion of Lumbar Vertebral Joint with Interbody Fusion Device, Posterior Approach, Anterior Column, Open Approach (ICD-10-PCS; principal; 2017-01-12 08:28)
DX: M51.16 Intervertebral disc disorders with radiculopathy, lumbar region (principal); N31.9 Neuromuscular dysfunction of bladder, unspecified; E11.9 Type 2 diabetes mellitus without complications; M41.9 Scoliosis, unspecified; M48.062 Spinal stenosis, lumbar region with neurogenic claudication; M43.16 Spondylolisthesis, lumbar region; M99.83 Other biomechanical lesions of lumbar region; M62.838 Other muscle spasm; S00.81XA Abrasion of other part of head, initial encounter; F17.200 Nicotine dependence, unspecified, uncomplicated; W06.XXXA Fall from bed, initial encounter; Y92.230 Patient room in hospital as the place of occurrence of the external cause; Z79.84 Long term (current) use of oral hypoglycemic drugs
CPT/HCPCS: 70450; 72100; 74000; 76000; 80048; 82948; 85027; 86850; 86900; 86901; 94150; C1713; J0131; J0690; J1100; J1170; J2250; J2270; J2370; J2405; J2710; J3010; J3370; J3480; J7120; L0484

== ENCOUNTER 2017-01-25 17:52 | Inpatient (IN) | payer MEDICARE ==
[~2017-01-25] VITALS: Ht 167.6 cm; Wt 68.0 kg
[~2017-01-25 17:52] MED LIST changes: +CYCL1TAB29 PO; -FISH100020; +HYDR-3535 PO; -HYDR-3583 PO; -VITA500C3 CHEW; -VITA60003 PO; -VITATAB11; -[UNRECOGNIZED DRUG - CODE] PO
[2017-01-25 17:58] VITALS: BP 121/76; PULSE 102; RESP 16; TEMP 97.5; O2SAT 98
--- NOTE | 2017-01-25 18:10 | PD ---
HPI Chief Complaint: GI Complaint Time Seen by Provider: 18:02 Travel History International Travel<30 days: No Contact w/Intl Traveler<30days: No Traveled to known affect area: No History of Present Illness HPI 71 y/o female presents with nonbloody emesis, diffuse abdominal pain and distention over the past couple of days. She states she recently just got discharged from the hospital for back surgery. She states she is on hydrocodone for pain control but has been on that for multiple years given she has chronic back pain. She states the nurse that came to visit her was concerned she had a bowel blockage given her symptoms and wanted her to come here to get checked out. She denies any other concurrent complaints. Duration is couple of days. She states her last bowel movement or gas was Tuesday. PFSH Past Medical History Hx Anticoagulant Therapy: No Cancer: No Cardiovascular Problems: No Chemotherapy: No Cerebrovascular Accident: No Diabetes: Yes (TYPE II) Diminished Hearing: No Endocrine: No Genitourinary: No Hepatitis: Yes (ACUTE HEP A) Hiatal Hernia: No Herniated Disk: Yes Immune Disorder: No Musculoskeletal: Yes (CHRONIC BACK PAIN/HERNIATED DISC, TINGLING LOWER BACK, R HIP) Neurologic: No Psychiatric: No Reproductive: No Respiratory: No Thyroid Disease: No Past Surgical History Abdominal Surgery: Yes (APPENDECTOMY, REDUCTION OF INTUSSUSSEPTION) AICD: No Body Medical Devices: RIGHT EYE ORBIT Cardiac Surgery: No Ear Surgery: No Endocrine Surgery: No Eye Surgery: Yes (FACIAL FRACTURE NEAR EYE,BILATERAL CATARACT EXT.) Genitourinary Surgery: No Gynecologic Surgery: No Hysterectomy: No Joint Replacement: No Oral Surgery: No Pacemaker: No Social History Alcohol Use: No Tobacco Use: Yes (1/2 PPD) Substance Use: No Allergies-Medications (Allergen,Severity, Reaction): Coded Allergies: No Known Allergies (Unverified , 01/25/17) Reported Meds & Prescriptions Reported Meds & Active Scripts Active Lortab (Hydrocodone-Acetaminophen) 10-325 Mg Tab 1 Tab PO Q4H PRN Flexeril (Cyclobenzaprine HCl) 10 Mg Tab 10 Mg PO TID Gabapentin 300 Mg Cap 300 Mg PO TID Reported Pantoprazole (Pantoprazole Sodium) 40 Mg Tab 40 Mg PO DAILY PRN Multiple Vitamin 1 Tab 1 Tab PO DAILY Metformin (Metformin HCl) 500 Mg Tab 500 Mg PO DAILY With a meal Glucosamine (Glucosamine Sulfate) 1,000 Mg Cap 1,000 Mg PO DAILY Review of Systems Except as stated in HPI: all other systems reviewed are Neg Physical Exam Narrative GENERAL: Well-nourished, well-developed patient. SKIN: Warm and dry. HEAD: Normocephalic and atraumatic. EYES: No injection or drainage. ENT: No nasal drainage noted. NECK: Supple, trachea midline. CARDIOVASCULAR: Regular rate and rhythm RESPIRATORY: No increased effort. No accessory muscle use. GASTROINTESTINAL: Abdomen soft, mild distention, diffusely tender, no rebound EXTREMITIES: No edema. NEUROLOGICAL: Awake and alert. Moves all extremities and sensory grossly within normal limits. Normal speech. Data Data Last Documented VS Vital Signs Date Time Temp Pulse Resp B/P (MAP) Pulse Ox O2 Delivery O2 Flow Rate FiO2 01/25/17 17:58 97.5 102 16 121/76 (91) 98 Orders Orders Complete Blood Count With Diff (01/25/17 18:06) Comprehensive Metabolic Panel (01/25/17 18:06) Lipase (01/25/17 18:06) Urinalysis - C+S If Indicated (01/25/17 18:06) Ct Abd/Pel W Iv Contrast(Rout) (01/25/17 18:06) Iv Access Insert/Monitor (01/25/17 18:06) Ecg Monitoring (01/25/17 18:06) Oximetry (01/25/17 18:06) Ondansetron Inj (Zofran Inj) (01/25/17 18:15) Sodium Chloride 0.9% Flush (Ns Flush) (01/25/17 18:15) Oral Contrast - Adult (01/25/17 18:11) Diatrizoate Liq ( Gastroview Liq) (01/25/17 18:20) Sodium Chlor 0.9% 1000 Ml Inj (Ns 1000 M (01/25/17 18:45) Labs Laboratory Tests Test 01/25/17 18:17 White Blood Count 12.6 TH/MM3 Red Blood Count 4.76 MIL/MM3 Hemoglobin 14.3 GM/DL Hematocrit 42.2 % Mean Corpuscular Volume 88.7 FL Mean Corpuscular Hemoglobin 30.0 PG Mean Corpuscular Hemoglobin Concent 33.8 % Red Cell Distribution Width 13.4 % Platelet Count 559 TH/MM3 Mean Platelet Volume 7.6 FL Neutrophils (%) (Auto) 76.1 % Lymphocytes (%) (Auto) 14.7 % Monocytes (%) (Auto) 7.5 % Eosinophils (%) (Auto) 0.7 % Basophils (%) (Auto) 1.0 % Neutrophils # (Auto) 9.7 TH/MM3 Lymphocytes # (Auto) 1.8 TH/MM3 Monocytes # (Auto) 0.9 TH/MM3 Eosinophils # (Auto) 0.1 TH/MM3 Basophils # (Auto) 0.1 TH/MM3 CBC Comment DIFF FINAL Differential Comment Blood Urea Nitrogen 36 MG/DL Creatinine 1.40 MG/DL Random Glucose 146 MG/DL Total Protein 8.5 GM/DL Albumin 3.8 GM/DL Calcium Level 10.7 MG/DL Alkaline Phosphatase 130 U/L Aspartate Amino Transf (AST/SGOT) 22 U/L Alanine Aminotransferase (ALT/SGPT) 23 U/L Total Bilirubin 0.6 MG/DL Sodium Level 128 MEQ/L Potassium Level 3.3 MEQ/L Chloride Level 82 MEQ/L Carbon Dioxide Level 33.3 MEQ/L Anion Gap 13 MEQ/L Estimat Glomerular Filtration Rate 37 ML/MIN Lipase 139 U/L [facility] Medical Decision Making Medical Screen Exam Complete: Yes Emergency Medical Condition: Yes Medical Record Reviewed: Yes (past history confirm, prior visits reviewed) Differential Diagnosis Obstruction, ileus, constipation Narrative Course Will check blood work, urinalysis, CT scan abdominal pelvis and dose with Zofran and reevaluate Physician Communication Physician Communication oncoming er physician to follow workup and reeval Ellie Oscar MD Jan 25, 2017 18:10
[2017-01-25] MEDS ORDERED: ONDANSETRON HCL 4 MG/2 ML VIAL IVP ONE (18:15)
[2017-01-25] MEDS ORDERED: DIATRIZOATE MEGLUM/DIATRIZOATE SOD 9 ML CUP ONE (18:20)
[2017-01-25 18:28] LABS: AUTOMATED NEUTROPHIL # 9.7 TH/MM3 (1.8-7.7); BASOPHIL # 0.1 TH/MM3 (0-0.2); EOSINOPHIL # 0.1 TH/MM3 (0-0.4); EOSINOPHIL % 0.7 % (0.0-4.0); HEMATOCRIT 42.2 % (35.0-46.0); HEMO FLAGS DIFF FINAL; LYMPH % 14.7 % (9.0-44.0); LYMPHOCYTE # 1.8 TH/MM3 (1.0-4.8); MEAN CELL VOLUME 88.7 FL (80.0-100.0); MEAN CORPUSCULAR HGB CONC 33.8 % (32.0-36.0); MONO % 7.5 % (0.0-8.0); NEUT % 76.1 % (16.0-70.0); PLATELET COUNT 559 TH/MM3 (150-450); RED BLOOD COUNT 4.76 MIL/MM3 (4.00-5.30); RED CELL DISTRIBUTION WIDTH 13.4 % (11.6-17.2); WHITE BLOOD COUNT 12.6 TH/MM3 (4.0-11.0)
[2017-01-25 18:35] LABS: CHLORIDE 82 MEQ/L (98-107); POTASSIUM 3.3 MEQ/L (3.5-5.1); SODIUM (NA) 128 MEQ/L (136-145)
[2017-01-25 18:39] LABS: ANION GAP 13 MEQ/L (5-15); BICARBONATE 33.3 MEQ/L (21.0-32.0); BLOOD UREA NITROGEN 36 MG/DL (7-18)
[2017-01-25 18:42] LABS: ALT (GPT) 23 U/L (10-53); AST (GOT) 22 U/L (15-37); GLOMERULAR FILTRATION RATE 37 ML/MIN (>89)
[2017-01-25 18:43] LABS: TOTAL BILIRUBIN ADULT 0.6 MG/DL (0.2-1.0)
[2017-01-25 18:45] LABS: ALKALINE PHOSPHATASE 130 U/L (45-117)
[2017-01-25] MEDS ORDERED: SODIUM CHLOR 0.9% 1000 ML INJ 1,000 ML IV ONE (18:45)
[2017-01-25 18:59] VITALS: BP 135/91; PULSE 96; RESP 18; O2SAT 97
--- NOTE | 2017-01-25 19:11 | PD ---
Physical Exam Date Seen by Provider: Jan 25, 2017 Time Seen by Provider: 19:09 Narrative accepted in transfer of care from Dr Oscar GENERAL: Well developed well-nourished female in no acute distress no respiratory distress SKIN: Warm and dry. HEAD: Normocephalic. EYES: No scleral icterus. No injection or drainage. NECK: Supple, trachea midline. No JVD or lymphadenopathy. CARDIOVASCULAR: Regular rate and rhythm without murmurs, gallops, or rubs. RESPIRATORY: Breath sounds equal bilaterally. No accessory muscle use. GASTROINTESTINAL: Abdomen soft, non-tender, mildly distended. Data Data Last Documented VS Vital Signs Date Time Temp Pulse Resp B/P (MAP) Pulse Ox O2 Delivery O2 Flow Rate FiO2 01/25/17 20:01 96 16 143/91 (108) 98 Room Air 01/25/17 17:58 97.5 Orders Orders Complete Blood Count With Diff (01/25/17 18:06) Comprehensive Metabolic Panel (01/25/17 18:06) Lipase (01/25/17 18:06) Urinalysis - C+S If Indicated (01/25/17 18:06) Ct Abd/Pel W Iv Contrast(Rout) (01/25/17 18:06) Iv Access Insert/Monitor (01/25/17 18:06) Ecg Monitoring (01/25/17 18:06) Oximetry (01/25/17 18:06) Ondansetron Inj (Zofran Inj) (01/25/17 18:15) Sodium Chloride 0.9% Flush (Ns Flush) (01/25/17 18:15) Oral Contrast - Adult (01/25/17 18:11) Diatrizoate Liq ( Gastroview Liq) (01/25/17 18:20) Sodium Chlor 0.9% 1000 Ml Inj (Ns 1000 M (01/25/17 18:45) Cath For Specimen (01/25/17 19:58) Iodixanol 320 Inj (Rad Ct) (Visipaque 32 (01/25/17 20:11) NPO (01/25/17 20:55) Ng Gastric Tube Insert/Monitor (01/25/17 20:55) Place Ng Tube To Low Intermit (01/25/17 20:55) Admit Order (Ed Use Only) (01/25/17 21:17) Labs Laboratory Tests Test 01/25/17 18:17 White Blood Count 12.6 TH/MM3 Red Blood Count 4.76 MIL/MM3 Hemoglobin 14.3 GM/DL Hematocrit 42.2 % Mean Corpuscular Volume 88.7 FL Mean Corpuscular Hemoglobin 30.0 PG Mean Corpuscular Hemoglobin Concent 33.8 % Red Cell Distribution Width 13.4 % Platelet Count 559 TH/MM3 Mean Platelet Volume 7.6 FL Neutrophils (%) (Auto) 76.1 % Lymphocytes (%) (Auto) 14.7 % Monocytes (%) (Auto) 7.5 % Eosinophils (%) (Auto) 0.7 % Basophils (%) (Auto) 1.0 % Neutrophils # (Auto) 9.7 TH/MM3 Lymphocytes # (Auto) 1.8 TH/MM3 Monocytes # (Auto) 0.9 TH/MM3 Eosinophils # (Auto) 0.1 TH/MM3 Basophils # (Auto) 0.1 TH/MM3 CBC Comment DIFF FINAL Differential Comment Blood Urea Nitrogen 36 MG/DL Creatinine 1.40 MG/DL Random Glucose 146 MG/DL Total Protein 8.5 GM/DL Albumin 3.8 GM/DL Calcium Level 10.7 MG/DL Alkaline Phosphatase 130 U/L Aspartate Amino Transf (AST/SGOT) 22 U/L Alanine Aminotransferase (ALT/SGPT) 23 U/L Total Bilirubin 0.6 MG/DL Sodium Level 128 MEQ/L Potassium Level 3.3 MEQ/L Chloride Level 82 MEQ/L Carbon Dioxide Level 33.3 MEQ/L Anion Gap 13 MEQ/L Estimat Glomerular Filtration Rate 37 ML/MIN Lipase 139 U/L [facility] Medical Record Reviewed: Yes Supervised Visit with SARAH: No Interpretation(s) EKG sinus rhythm rate [address] elevation or injury pattern nonspecific ST flattening Last Impressions Abdomen/Pelvis CT 01/25/17 1806 Signed Impressions: Service Date/Time: Wednesday, January 25, 2017 20:05 - CONCLUSION: Extensive small bowel obstruction and the transition zone is somewhere in distal ileum not present on the prior exam Yoli Orta MD CBC & BMP Diagram 01/25/17 18:17 Total Protein 8.5 H, Albumin 3.8, Calcium Level 10.7 H, Alkaline Phosphatase 130 H, Aspartate Amino Transf (AST/SGOT) 22, Alanine Aminotransferase (ALT/SGPT ) 23, Total Bilirubin 0.6 Vital Signs Date Time Temp Pulse Resp B/P (MAP) Pulse Ox O2 Delivery O2 Flow Rate FiO2 01/25/17 20:01 96 16 143/91 (108) 98 Room Air 01/25/17 18:59 96 18 135/91 (106) 97 Room Air 01/25/17 17:58 97.5 102 16 121/76 (91) 98 Differential Diagnosis accepted in transfer of care from Dr Oscar; please refer to her dictation Narrative Course accepted in transfer of care from Dr Oscar; follow up of pending diagnostics and disposition; 01/12/17 Dr Mendez L4-L5 transforaminal interbody fusion L4 and 5 decompression laminectomy facetectomy and microdiscectomy and L4-5 pedicle screw fixation and L 4-5 interbody cage placement; reportedly has done well however decrease in quantity and frequency of bowel movements therefore once released from rehabilitation on Tuesday used an ex lax and suppository reportedly had a large bowel movement subsequently and then thereafter started noticing some abdominal distention and no subsequent bowel movement or flatus. Physician Communication Physician Communication call placed to [facility] provider--discussed with Dr Sanchez -- CT labs, CT results discussed and will admit to her service aware NGT has been ordered Diagnosis Primary Impression: Small bowel obstruction Additional Impressions: Acute renal insufficiency Hyponatremia Hypokalemia Type 2 diabetes mellitus Admitting Information Admitting Physician Requests: Admit Sherrill Pizarro MD Jan 25, 2017 19:10
[2017-01-25] MEDS ORDERED: PHEN0.4T PO (19:17)
[2017-01-25 20:01] VITALS: BP 143/91; PULSE 96; RESP 16; O2SAT 98
[2017-01-25] MEDS ORDERED: IODIXANOL 320 MG/ML 10 ML VIAL (for Rad CT) IVCONTRAST ONE (20:11)
--- NOTE | 2017-01-25 20:48 | RADRPT ---
EXAM DATE/TIME: 01/25/2017 20:05 [facility] COMPARISON: CT ABDOMEN & PELVIS W CONTRAST, November 30, 2014, 16:01. INDICATIONS : Diffuse abdominal pain, constipation and distention. Recent back surgery. IV CONTRAST: 50 cc Visipaque (iodixanol) IV ORAL CONTRAST: Partial prescribed oral contrast ingested. RADIATION DOSE: 8.94 CTDIvol (mGy) MEDICAL HISTORY : Gastroesophageal reflux disease. Hepatitis A. Diabetes mellitus type 2. SURGICAL HISTORY : Appendectomy. Reduction of intussusseption. Back surgery. ENCOUNTER: Initial ACUITY: 2 days PAIN SCALE: 6/10 LOCATION: abdomen TECHNIQUE: Volumetric scanning of the abdomen and pelvis was performed. Using automated exposure control and adjustment of the mA and/or kV according to patient size, radiation dose was kept as low as reasonably achievable to obtain optimal diagnostic quality images. DICOM format image data is av ailable electronically for review and comparison. FINDINGS: CT Abdomen: The spleen, pancreas, kidneys, adrenals are unremarkable. There is no evidence for any ap preciable pathological adenopathy, free fluid. There is a small almost 1 cm cyst in the hepatic dome and not changed. There is extensive dilatation of loops of small bowel not present previously organiz ed in the midportion of the abdomen with maximum diameter of 3.3 cm and the colon is completely decom pressed. The distal ileal loops are decompressed. No definite free air is identified for technique. CT pelvis: There is no evidence for mass, abscess formation, or any significant adenopathy within the pelvis. CONCLUSION: Extensive small bowel obstruction and the transition zone is somewhere in distal ileu m not present on the prior exam Yoli Orta MD on January 25, 2017 at 20:43 Board Certified Radiologist. This report was verified electronically.
[2017-01-25 21:30] VITALS: BP 113/78; PULSE 100; RESP 18; O2SAT 94
[2017-01-25] MEDS ORDERED: ONDANSETRON HCL 4 MG/2 ML VIAL IV PUSH PRN (22:15)
[2017-01-25] MEDS ORDERED: POTASSIUM CHLOR 10 MEQ PREMIX 100 ML IV ONE (22:15)
[2017-01-25] MEDS ORDERED: DEXTROSE 50% IN WATER 50 ML VIAL(D50) IV PUSH PRN (22:15)
[2017-01-25] MEDS ORDERED: GLUCAGON 1 MG/ML VIAL OTHER PRN (22:15)
[2017-01-25] MEDS ORDERED: ACETAMINOPHEN 650 MG SUPP RECTAL PRN (22:15)
[2017-01-25] MEDS ORDERED: SODIUM CHLOR 0.9% 1000 ML INJ 1,000 ML IV SCH (22:15)
[2017-01-25 22:40] VITALS: BP 137/88; PULSE 96; RESP 16; O2SAT 97
[2017-01-25 23:00] VITALS: BP 137/88
[2017-01-25 23:03] LABS: BLOOD, URINE NEG (NEG); GLUCOSE,URINE NEG (NEG); KETONE, URINE 15 mg/dL (NEG); NITRITE,URINE POS (NEG); PH, URINE 5.5 (5.0-8.5)
[2017-01-25 23:14] LABS: URINE COLOR AMBER (YELLW/STRAW)
[2017-01-25 23:15] LABS: MUCUS URINE MOD /lpf (OCC); SQUAMOUS EPITHELIAL CELL URINE 0-5 /hpf (0-5)
[2017-01-25 23:16] LABS: RBC, URINE 0-3 /hpf (0-3); WBC, URINE 0-2 /hpf (0-5)
[2017-01-25 23:18] LABS: COMMENT (UR) CULTURE INDICATED; CULTURE IF INDICATED CULTURE INDICATED
[2017-01-25] MEDS: NS + KCL 20 MEQ INJ 1,000 ML IV SCH (23:42)
[2017-01-26] VITALS: BP 142/92; PULSE 103; RESP 20; TEMP 98; O2SAT 95
[2017-01-26] MEDS: HYDROmorphone HCL PF 1 MG/ML VIAL IV PRN ×2 (03:14→09:27)
[2017-01-26 04:00] VITALS: BP 136/77; PULSE 76; RESP 18; TEMP 98.2; O2SAT 96
[2017-01-26] MEDS: NS + KCL 20 MEQ INJ 1,000 ML IV SCH ×5 (06:21→19:38)
[2017-01-26 06:39] LABS: AUTOMATED NEUTROPHIL # 10.9 TH/MM3 (1.8-7.7); BASOPHIL # 0.1 TH/MM3 (0-0.2); BASOPHIL % 0.5 % (0.0-2.0); EOSINOPHIL # 0.1 TH/MM3 (0-0.4); EOSINOPHIL % 0.4 % (0.0-4.0); HEMATOCRIT 40.4 % (35.0-46.0); HEMO FLAGS DIFF FINAL; LYMPH % 13.9 % (9.0-44.0); MEAN CELL VOLUME 87.9 FL (80.0-100.0); MEAN CORPUSCULAR HEMOGLOBIN 29.3 PG (27.0-34.0); MEAN CORPUSCULAR HGB CONC 33.3 % (32.0-36.0); MONO % 6.3 % (0.0-8.0); NEUT % 78.9 % (16.0-70.0); PLATELET COUNT 510 TH/MM3 (150-450)
[2017-01-26 06:43] LABS: CHLORIDE 87 MEQ/L (98-107); POTASSIUM 3.5 MEQ/L (3.5-5.1); SODIUM (NA) 134 MEQ/L (136-145)
[2017-01-26 07:06] LABS: ALKALINE PHOSPHATASE 110 U/L (45-117); ALT (GPT) 19 U/L (10-53); ANION GAP 11 MEQ/L (5-15); AST (GOT) 17 U/L (15-37); BICARBONATE 35.7 MEQ/L (21.0-32.0); BLOOD UREA NITROGEN 34 MG/DL (7-18); GLOMERULAR FILTRATION RATE 55 ML/MIN (>89); TOTAL BILIRUBIN ADULT 0.6 MG/DL (0.2-1.0)
--- NOTE | 2017-01-26 07:22 | RADRPT ---
EXAM DATE/TIME: 01/26/2017 06:48 [facility] COMPARISON: CT ABDOMEN & PELVIS W CONTRAST, January 25, 2017, 20:05. ABDOMEN KUB ONLY, January 16, 2017, 10:56. INDICATIONS : Follow up bowel obstruction. MEDICAL HISTORY : Subarachnoid hemorrhage. SURGICAL HISTORY : Appendectomy. ENCOUNTER: Subsequent ACUITY: 1 week PAIN SCORE: 6/10 LOCATION: Bilateral abdomen. FINDINGS: Supine view of the abdomen was performed. The abdominal bowel gas pattern is abnormal with air-fille d loops of dilated small bowel. Nasogastric tube has been inserted. Less distention is noted compared to the recent CT. 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 CONCLUSION: Persistent but slightly improved small bowel ileus. Nasogastric tube in good position. Osvaldo Hoover MD on January 26, 2017 at 7:19 Board Certified Radiologist. This report was verified electronically.
[2017-01-26 08:00] VITALS: BP 126/76; PULSE 95; RESP 18; TEMP 97.7; O2SAT 96
[2017-01-26] MEDS: INSULIN ASPART SUPPLEMENTAL SCALE SQ SCH ×4 (08:00→21:00)
--- NOTE | 2017-01-26 08:31 | PD.CONS ---
HPI Service General surgery Consult Requested By Reason for Consult Small bowel obstruction Primary Care Physician Jordan Ascencio MD History of Present Illness The patient is a 71-year-old female who underwent back surgery on 01/12/17. She went to rehabilitation and then home. She states that after the surgery she did not have a bowel movement for about 10 days. Therefore, she took a laxative which helped and she had a large bowel movement. However, on Tuesday 5 days ago she began to develop bloating and abdominal discomfort. She has not had any flatus for a couple of days. She denies vomiting. Past surgical history of the abdomen includes surgery for intussusception at age 4 months at which time they also removed her appendix. She was noted to have prerenal azotemia and leukocytosis in the emergency department. CT abdomen and pelvis shows high-grade bowel obstruction. NG tube was placed and there is 2700 cc recorded output. Review of Systems Constitutional: DENIES: Fever, Chills Eyes: DENIES: Eye inflammation, Eye pain Respiratory: DENIES: Cough, Shortness of breath Cardiovascular: DENIES: Chest pain, Palpitations Gastrointestinal: COMPLAINS OF: Abdominal pain, DENIES: Vomiting Integumentary: DENIES: Pruritus, Rash Neurologic: DENIES: Paresthesias, Seizures Past Family Social History Past Medical History Diabetes mellitus Past Surgical History Laparotomy for intussusception as 4-month-old with appendectomy Back surgery 01/12/17 Reported Medications Reported Meds & Active Scripts Active Lortab (Hydrocodone-Acetaminophen) 10-325 Mg Tab 1 Tab PO Q4H PRN Flexeril (Cyclobenzaprine HCl) 10 Mg Tab 10 Mg PO TID Gabapentin 300 Mg Cap 300 Mg PO TID Reported Pyridium (Phenazopyridine HCl) 100 Mg Tab 100 Mg PO Q8H PRN Pantoprazole (Pantoprazole Sodium) 40 Mg Tab 40 Mg PO DAILY PRN Multiple Vitamin 1 Tab 1 Tab PO DAILY Metformin (Metformin HCl) 500 Mg Tab 500 Mg PO DAILY With a meal Glucosamine (Glucosamine Sulfate) 1,000 Mg Cap 1,000 Mg PO DAILY Allergies: Coded Allergies: No Known Allergies (Unverified , 01/25/17) Active Ordered Medications Current Medications Medications (Trade) Dose Ordered Sig/Yusef Route Start Time Stop Time Status Last Admin (NS Flush) 2 ml UNSCH PRN IV FLUSH 01/25/17 18:15 Potassium Chloride/Sodium Chloride 1,000 ml @ 150 mls/hr Q6H40M IV 01/25/17 22:08 01/26/17 06:21 (Zofran Inj) 4 mg Q6H PRN IV PUSH 01/25/17 22:15 (Tylenol Supp) 650 mg Q4H PRN RECTAL 01/25/17 22:15 (Protonix Inj) 40 mg DAILY IV PUSH 01/26/17 09:00 (D50w (Vial) Inj) 50 ml UNSCH PRN IV PUSH 01/25/17 22:15 (Glucagon Inj) 1 mg UNSCH PRN OTHER 01/25/17 22:15 (NovoLOG SUPPLEMENTAL SCALE) 1 ACHS SLIDING SCALE SQ 01/26/17 08:00 (Dilaudid Pf Inj) 0.5 mg Q4H PRN IV 01/26/17 03:00 01/26/17 03:14 Family History Noncontributory Social History She smokes half a pack of cigarettes daily. No alcohol or drug use. Physical Exam Vital Signs Vital Signs Date Time Temp Pulse Resp B/P (MAP) Pulse Ox O2 Delivery O2 Flow Rate FiO2 01/26/17 08:00 97.7 95 18 126/76 (93) 96 01/26/17 04:00 98.2 76 18 136/77 (96) 96 01/26/17 00:00 98.0 103 20 142/92 (109) 95 01/25/17 23:00 96 16 137/88 (104) 97 01/25/17 22:40 96 16 137/88 (104) 97 Room Air 01/25/17 21:30 100 18 113/78 (90) 94 Room Air 01/25/17 20:01 96 16 143/91 (108) 98 Room Air 01/25/17 18:59 96 18 135/91 (106) 97 Room Air 01/25/17 17:58 97.5 102 16 121/76 (91) 98 Physical Exam GENERAL: Awake and alert. No acute distress. Cooperative. HEAD: Normocephalic. Atraumatic. EYES: Pupils equal round and reactive to light bilaterally. No scleral icterus. ENT: Moist oral mucosa. NG tube in place. CHEST: Nonlabored breathing. No respiratory distress. CARDIOVASCULAR: Warm and well perfused. No pedal edema. ABDOMEN: Moderately distended. Tympanitic. Scar in the midline. Moderate tenderness in the lower abdomen bilaterally. EXTREMITIES: No cyanosis or edema. SKIN: Warm, dry, nonjaundiced. Laboratory Laboratory Tests Test 01/25/17 18:17 01/25/17 22:55 01/26/17 06:15 White Blood Count 12.6 14.0 Red Blood Count 4.76 4.60 Hemoglobin 14.3 13.5 Hematocrit 42.2 40.4 Mean Corpuscular Volume 88.7 87.9 Mean Corpuscular Hemoglobin 30.0 29.3 Mean Corpuscular Hemoglobin Concent 33.8 33.3 Red Cell Distribution Width 13.4 13.0 Platelet Count 559 510 Mean Platelet Volume 7.6 7.6 Neutrophils (%) (Auto) 76.1 78.9 Lymphocytes (%) (Auto) 14.7 13.9 Monocytes (%) (Auto) 7.5 6.3 Eosinophils (%) (Auto) 0.7 0.4 Basophils (%) (Auto) 1.0 0.5 Neutrophils # (Auto) 9.7 10.9 Lymphocytes # (Auto) 1.8 2.0 Monocytes # (Auto) 0.9 0.9 Eosinophils # (Auto) 0.1 0.1 Basophils # (Auto) 0.1 0.1 CBC Comment DIFF FINAL DIFF FINAL Differential Comment Blood Urea Nitrogen 36 34 Creatinine 1.40 1.00 Random Glucose 146 114 Total Protein 8.5 7.5 Albumin 3.8 3.3 Calcium Level 10.7 9.0 Alkaline Phosphatase 130 110 Aspartate Amino Transf (AST/SGOT) 22 17 Alanine Aminotransferase (ALT/SGPT) 23 19 Total Bilirubin 0.6 0.6 Sodium Level 128 134 Potassium Level 3.3 3.5 Chloride Level 82 87 Carbon Dioxide Level 33.3 35.7 Anion Gap 13 11 Estimat Glomerular Filtration Rate 37 55 Lipase 139 Urine Color RACHID Urine Turbidity CLEAR Urine pH 5.5 Urine Specific [place] GREATER THAN 1.035 Urine Protein 30 Urine Glucose (UA) NEG Urine Ketones 15 Urine Occult Blood NEG Urine Nitrite POS Urine Bilirubin NEG Urine Leukocyte Esterase NEG Urine RBC 0-3 Urine WBC 0-2 Urine Squamous Epithelial Cells 0-5 Urine Amorphous Sediment MOD Urine Hyaline Casts 10-14 Urine Mucus MOD Microscopic Urinalysis Comment CULTURE INDICATED Date/Time Source Procedure Growth Status 01/25/17 22:55 Urine Clean Catch Urine Culture Pending Received Result Diagram: 01/26/17 0615 01/26/17 0615 Imaging Last Impressions Abdomen X-Ray 01/26/17 0000 Signed Impressions: Service Date/Time: Thursday, January 26, 2017 06:48 - CONCLUSION: Persistent but slightly improved small bowel ileus. Nasogastric tube in good position. Osvaldo Hoover MD Abdomen/Pelvis CT 01/25/17 1806 Signed Impressions: Service Date/Time: Wednesday, January 25, 2017 20:05 - CONCLUSION: Extensive small bowel obstruction and the transition zone is somewhere in distal ileum not present on the prior exam Yoli Orta MD Assessment and Plan Assessment and Plan 71-year-old female status post back surgery on 01/12/17 with high-grade small bowel obstruction. Will attempt nonoperative treatment initially. Continue IV fluids and NG tube. If no resolution in the next few days may require operative intervention. She appears to have a UTI. I will start levaquin. RejiSharath king MD Jan 26, 2017 08:31
[2017-01-26] MEDS: PANTOPRAZOLE SODIUM 40 MG VIAL IV PUSH SCH (09:00)
[2017-01-26] MEDS: LEVOFLOXACIN 750 MG PREMIX INJ 150 ML IV SCH (09:27)
[2017-01-26 12:00] VITALS: BP 118/72; PULSE 92; RESP 16; TEMP 97.6; O2SAT 97
--- NOTE | 2017-01-26 14:00 | EKG ---
Date Performed: 01/25/2017 Time Performed: 21:48:51 PTAGE: 71 years EKG: Sinus rhythm POSSIBLE LEFT ATRIAL ENLARGEMENT NONSPECIFIC ST & T-WAVE ABNORMALITY BORDERLINE ECG PREVIOUS TRACING : 06/22/2013 09.49 DOCTOR: Martir Jay Interpretating Date/Time 01/26/2017 13:55:22
[2017-01-26] MEDS ORDERED: HYDROmorphone HCL PF 1 MG/ML VIAL IV PUSH PRN (14:30)
[2017-01-26 20:00] VITALS: BP 134/87; PULSE 94; RESP 20; TEMP 97.1; O2SAT 96
[2017-01-27] VITALS: BP 140/91; PULSE 96; RESP 18; TEMP 97.9; O2SAT 96
[2017-01-27 06:45] LABS: AUTOMATED NEUTROPHIL # 7.8 TH/MM3 (1.8-7.7); BASOPHIL % 0.3 % (0.0-2.0); EOSINOPHIL # 0.1 TH/MM3 (0-0.4); EOSINOPHIL % 0.9 % (0.0-4.0); HEMATOCRIT 38.3 % (35.0-46.0); HEMO FLAGS DIFF FINAL; LYMPH % 15.4 % (9.0-44.0); LYMPHOCYTE # 1.6 TH/MM3 (1.0-4.8); MEAN CELL VOLUME 88.5 FL (80.0-100.0); MEAN CORPUSCULAR HEMOGLOBIN 29.9 PG (27.0-34.0); MEAN CORPUSCULAR HGB CONC 33.8 % (32.0-36.0); MONO % 7.2 % (0.0-8.0); NEUT % 76.2 % (16.0-70.0); PLATELET COUNT 415 TH/MM3 (150-450); RED BLOOD COUNT 4.33 MIL/MM3 (4.00-5.30); RED CELL DISTRIBUTION WIDTH 12.8 % (11.6-17.2); WHITE BLOOD COUNT 10.1 TH/MM3 (4.0-11.0)
[2017-01-27 07:43] LABS: ALKALINE PHOSPHATASE 106 U/L (45-117); ALT (GPT) 17 U/L (10-53); ANION GAP 14 MEQ/L (5-15); AST (GOT) 18 U/L (15-37); BICARBONATE 31.5 MEQ/L (21.0-32.0); BLOOD UREA NITROGEN 32 MG/DL (7-18); CHLORIDE 95 MEQ/L (98-107); GLOMERULAR FILTRATION RATE 64 ML/MIN (>89); POTASSIUM 3.4 MEQ/L (3.5-5.1); SODIUM (NA) 140 MEQ/L (136-145); TOTAL BILIRUBIN ADULT 0.6 MG/DL (0.2-1.0)
[2017-01-27] MEDS: NS + KCL 20 MEQ INJ 1,000 ML IV SCH ×6 (07:45→19:51)
[2017-01-27 07:50] VITALS: BP 134/82; PULSE 99; RESP 20; TEMP 97.6; O2SAT 96
[2017-01-27] MEDS: INSULIN ASPART SUPPLEMENTAL SCALE SQ SCH ×4 (08:00→19:51)
--- NOTE | 2017-01-27 08:54 | HHI.PR ---
Subjective Subjective Notes No flatus. She is not in pain now. Objective Vitals/I&O Vital Signs Date Time Temp Pulse Resp B/P (MAP) Pulse Ox O2 Delivery O2 Flow Rate FiO2 01/27/17 00:00 97.9 96 18 140/91 (107) 96 01/25/17 22:40 Room Air Labs Laboratory Tests Test 01/27/17 05:52 White Blood Count 10.1 Red Blood Count 4.33 Hemoglobin 13.0 Hematocrit 38.3 Mean Corpuscular Volume 88.5 Mean Corpuscular Hemoglobin 29.9 Mean Corpuscular Hemoglobin Concent 33.8 Red Cell Distribution Width 12.8 Platelet Count 415 Mean Platelet Volume 8.0 Neutrophils (%) (Auto) 76.2 Lymphocytes (%) (Auto) 15.4 Monocytes (%) (Auto) 7.2 Eosinophils (%) (Auto) 0.9 Basophils (%) (Auto) 0.3 Neutrophils # (Auto) 7.8 Lymphocytes # (Auto) 1.6 Monocytes # (Auto) 0.7 Eosinophils # (Auto) 0.1 Basophils # (Auto) 0.0 CBC Comment DIFF FINAL Differential Comment Blood Urea Nitrogen 32 Creatinine 0.87 Random Glucose 81 Total Protein 6.9 Albumin 3.2 Calcium Level 8.5 Alkaline Phosphatase 106 Aspartate Amino Transf (AST/SGOT) 18 Alanine Aminotransferase (ALT/SGPT) 17 Total Bilirubin 0.6 Sodium Level 140 Potassium Level 3.4 Chloride Level 95 Carbon Dioxide Level 31.5 Anion Gap 14 Estimat Glomerular Filtration Rate 64 Date/Time Source Procedure Growth Status 01/25/17 22:55 Urine Clean Catch Urine Culture - Preliminary NO GROWTH IN 24 HOURS. Resulted Radiology Last Impressions Abdomen X-Ray 01/26/17 0000 Signed Impressions: Service Date/Time: Thursday, January 26, 2017 06:48 - CONCLUSION: Persistent but slightly improved small bowel ileus. Nasogastric tube in good position. Osvaldo Hoover MD Abdomen/Pelvis CT 01/25/17 1806 Signed Impressions: Service Date/Time: Wednesday, January 25, 2017 20:05 - CONCLUSION: Extensive small bowel obstruction and the transition zone is somewhere in distal ileum not present on the prior exam Yoli Orta MD Narrative Exam NAD nonlabored breathing Abd: soft, mild distention, 1000cc orange bilious output/24h A/P Assessment and Plan 71 yo F with persistent small bowel obstruction. She has less pain and labs have improved, but no improvement in bowel function. Her symptoms began last Tuesday. Check KUB. I have scheduled her for operative intervention tomorrow at [facility]. I placed an order for transfer. I discussed the case in detail with her which will include diagnostic laparoscopy with lysis of adhesions, possible laparotomy. She understands and desires to proceed. Reji,Sharath DUBOSE Jan 27, 2017 08:54
--- NOTE | 2017-01-27 09:13 | MH ---
cc: MARGARITA WASHINGTON M.D. DATE OF ADMISSION: 01/25/2017 ADMITTING DIAGNOSIS: Small bowel obstruction. HISTORY OF PRESENT ILLNESS: The patient is a pleasant 71 year old female who was released from [facility] on January 16, 2018 after an L4-L5 interbody fusion, she said after that she went to [facility] and she progressed with physical therapy. She arrived home this past weekend, according to her she had chronic narcotic us from chronic low back pain and needs to keep up with a bowel regimen. While she was at [facility] she really had not had a bowel movement so when she got home she took her laxative and medication and she had copious bowel movements subsequent to that. She started feeling more poorly, with some abdominal discomfort, she also developed some heartburn. She has not had a bowel movement or passed gas. She has not had emesis. She really has not been eating at all. She did try to drink a little bit of liquids but her symptoms did not improve. She came to the emergency room. PAST MEDICAL HISTORY: 1. Significant for chronic low back pain with neurogenic claudication. 2. Prior episode of small bowel obstruction. 3. Type 2 diabetes. 4. History of subarachnoid hemorrhage. PAST SURGICAL HISTORY: Surgery for intussusception when she was a child. Appendectomy was done at that time. Recent back surgery preformed earlier in January. MEDICATIONS: 1. Lortab 10/325 mg every four hours. 2. Flexeril 10 mg three times per day. 3. Gabapentin 300 mg three times per day. 4. Metformin 500 mg p.o. daily. 5. Glucosamine 1000 mg daily. ALLERGIES SHE DENIES ANY ALLERGIES. HABITS: She does smoke a half pack per day. She does not consume any alcohol. SOCIAL HISTORY: She is and lives alone. She has had physical therapy coming out to the house. REVIEW OF SYSTEMS No fevers, no chills, no cough, no chest pain, no shortness of breath. She has been urinating well but she states that her urine is a little bit darker then normal. She still has a chronic back pain she says that it has not improved that much since her surgery. PHYSICAL EXAMINATION: VITAL SIGNS: Temperature 97.6, pulse 92, respirations 16, blood pressure 118/72, pulse oximetry 97% on room air. IN GENERAL: She is sleeping when I walked into the room, she is easily arousable. She is well groomed, she has nasogastric tube in place. As of this morning she has had approximately 2700 cc of drainage. NECK: Her neck is supple. LUNGS: Her lungs are clear to auscultation bilaterally. Her heart is regular rate and rhythm. She has no ectopy. ABDOMEN: Slightly distended, she had some moderate tenderness around the periumbilical lesion. EXTREMITIES: She has no clubbing, cyanosis or edema, she has a well healed surgical incision with Steri-Strips on her lower back. LABORATORY WORK: When she came in she had a white count of 12.6, hemoglobin of 14.3, hematocrit of 42.2. Platelet count of 559, neutrophils of 76. Sodium was 128 with potassium of 3.3. BUN 36, creatinine 1.4, random glucose of 146, urine was done which showed moderate amount of mucous, positive for nitrates, culture is pending. CT scan that was done last night showed extensive small bowel obstruction the transition somewhere in the distal ileum. ASSESSMENT AND PLAN: 31 year-old female presenting with small bowel obstruction. At this point she has already been seen by general surgery who agree with nasogastric tube placement and hopefully consent with management to resolution, otherwise they may need to take her to the operating room, continue to follow her progress in terms of her diabetes. Her metformin is on hold. She is on a sliding scale. There seems to be a component of prerenal azotemia and dehydration. She is receiving IV fluids at this point particularly since she is npo, status post low back surgery. I will have physical therapy see her. She did receive a dose of Levaquin from general surgeon for possible urinary tract infection. We will continue with this regimen for now. Further recommendations as the case develops. MD HALINA Ulloa/marika /2:18 PM /9:01 AM
[2017-01-27] MEDS: PANTOPRAZOLE SODIUM 40 MG VIAL IV PUSH SCH (10:54)
[2017-01-27] MEDS: LEVOFLOXACIN 750 MG PREMIX INJ 150 ML IV SCH (10:55)
--- NOTE | 2017-01-27 11:37 | RADRPT ---
EXAM DATE/TIME: 01/27/2017 11:14 [place] COMPARISON: CT ABDOMEN & PELVIS W CONTRAST, January 25, 2017, 20:05. ABDOMEN KUB ONLY, January 16, 2017, 10:56. ABDOMEN KUB ONLY, January 26, 2017, 6:48. INDICATIONS : Abdominal pain since lumbar surgery, 01/10/17. MEDICAL HISTORY : Gastroesophageal reflux disease. Hepatitis A. Diabetes mellitus type 2 SURGICAL HISTORY : Appendectomy. Reduction of intussusseption. Back surgery ENCOUNTER: Initial ACUITY: 3 weeks PAIN SCORE: 7/10 LOCATION: Bilateral abdominal FINDINGS: Supine and upright views of the abdomen were performed. There is an NG tube in the stomach. There con tinue to be several moderately distended loops of small bowel in the midabdomen. There are air-fluid levels on the upright study characteristic of a small bowel structure. The pattern appears to be slig htly improved compared to the prior KUB. No free air is seen. The lung bases are clear. The bony stru ctures are stable.. CONCLUSION: 1. There continues to be moderate distended loops of small bowel in the midabdomen characteristics of a small bowel obstruction. The pattern appears to be slightly improved compared to the prior study. 2. NG tube in the stomach. Varghese Hannon MD on January 27, 2017 at 11:33 Board Certified Radiologist. This report was verified electronically.
[2017-01-27 12:00] VITALS: BP 148/94; PULSE 98; RESP 14; TEMP 97.2; O2SAT 99
--- NOTE | 2017-01-27 12:38 | HHI.PR ---
Subjective Remarks Still not passing gas, doesn't feel much improved from yesterday worried about being able to use her back brace if she gets abdominal surgery Objective Vitals Vital Signs Date Time Temp Pulse Resp B/P (MAP) Pulse Ox O2 Delivery O2 Flow Rate FiO2 01/27/17 07:50 97.6 99 20 134/82 (99) 96 01/27/17 00:00 97.9 96 18 140/91 (107) 96 01/26/17 20:00 97.1 94 20 134/87 (103) 96 01/27/17 01/27/17 01/28/17 15:00 23:00 07:00 Output Total 1000 ml Balance -1000 ml Gastric Drainage Total 1000 ml Result Diagram: 01/27/17 0552 01/27/17 0552 Imaging Last Impressions Abdomen X-Ray 01/27/17 0000 Signed Impressions: Service Date/Time: January 11:14 - CONCLUSION: 1. There continues to be moderate distended loops of small bowel in the midabdomen characteristics of a small bowel obstruction. The pattern appears to be slightly improved compared to the prior study. 2. NG tube in the stomach. Varghese Hannon MD Abdomen/Pelvis CT 01/25/17 1806 Signed Impressions: Service Date/Time: Wednesday, January 25, 2017 20:05 - CONCLUSION: Extensive small bowel obstruction and the transition zone is somewhere in distal ileum not present on the prior exam Yoli Orta MD Objective Remarks Lying in bed, NG tube in place cta no wheezing abdomen, soft distended scds on A/P Problem List: (1) Hypokalemia ICD Codes: E87.6 - Hypokalemia Status: Acute Plan: continue to replace IV (2) Acute renal insufficiency ICD Codes: N28.9 - Disorder of kidney and ureter, unspecified Status: Acute Plan: improving with hydration cont iv fluids while npo (3) Small bowel obstruction ICD Codes: K56.609 - Unspecified intestinal obstruction, unspecified as to partial versus complete obstruction Status: Acute Plan: managed by surgery plan for OR tommorrow (4) Type 2 diabetes mellitus ICD Codes: E11.9 - Type 2 diabetes mellitus without complications Status: Chronic Plan: on ssi while npo (5) S/P lumbar fusion ICD Codes: Z98.1 - Arthrodesis status Plan: will need to continue with PT and lumbar corset Charu Sanchez MD Jan 27, 2017 12:38
[2017-01-27] MEDS: POTASSIUM CHLOR 20 MEQ PREMIX 100 ML IV SCH ×2 (13:00→15:00)
[2017-01-27] MEDS: SODIUM CHLORIDE 0.9% FLUSH 10 ML FLUSH IV FLUSH PRN (19:51)
[2017-01-27 20:37] VITALS: BP 123/70; PULSE 78; RESP 16; TEMP 97.3; O2SAT 96
[2017-01-28 00:17] VITALS: BP 145/80; PULSE 91; RESP 18; TEMP 96.9; O2SAT 95
[2017-01-28] MEDS ORDERED: LACTATED RINGER'S 1000 ML IV PRN (00:45)
[2017-01-28] MEDS: NS + KCL 20 MEQ INJ 1,000 ML IV SCH ×4 (02:34→20:34)
[2017-01-28 07:36] LABS: BICARBONATE 25.8 MEQ/L (21.0-32.0); POTASSIUM 3.8 MEQ/L (3.5-5.1)
[2017-01-28] MEDS: INSULIN ASPART SUPPLEMENTAL SCALE SQ SCH ×4 (07:53→20:33)
[2017-01-28] MEDS: LEVOFLOXACIN 750 MG PREMIX INJ 150 ML IV SCH (07:56)
[2017-01-28] MEDS: PANTOPRAZOLE SODIUM 40 MG VIAL IV PUSH SCH (07:56)
[2017-01-28 08:00] VITALS: BP 166/84; PULSE 96; RESP 18; TEMP 97.8; O2SAT 98
--- NOTE | 2017-01-28 08:55 | HHI.PR ---
Subjective Subjective Notes No flatus. Continued fairly high output from ngt. No abdominal pain. Objective Vitals/I&O Vital Signs Date Time Temp Pulse Resp B/P (MAP) Pulse Ox O2 Delivery O2 Flow Rate FiO2 01/28/17 08:00 97.8 96 18 166/84 (111) 98 01/25/17 22:40 Room Air Labs Laboratory Tests Test 01/28/17 06:26 Blood Urea Nitrogen 21 Creatinine 0.73 Random Glucose 75 Calcium Level 8.6 Sodium Level 139 Potassium Level 3.8 Chloride Level 101 Carbon Dioxide Level 25.8 Anion Gap 12 Estimat Glomerular Filtration Rate 78 Date/Time Source Procedure Growth Status 01/25/17 22:55 Urine Clean Catch Urine Culture - Final NO GROWTH IN 48 HOURS. Complete Radiology Last Impressions Abdomen X-Ray 01/26/17 0000 Signed Impressions: Service Date/Time: Thursday, January 26, 2017 06:48 - CONCLUSION: Persistent but slightly improved small bowel ileus. Nasogastric tube in good position. Osvaldo Hoover MD Abdomen/Pelvis CT 01/25/17 1806 Signed Impressions: Service Date/Time: Wednesday, January 25, 2017 20:05 - CONCLUSION: Extensive small bowel obstruction and the transition zone is somewhere in distal ileum not present on the prior exam Yoli Orta MD Narrative Exam NAD nonlabored breathing Abd: soft, mild distention, 2000cc orange bilious output/24h A/P Assessment and Plan 71 yo F with persistent small bowel obstruction. She has less pain and labs have improved, but no improvement in bowel function. Her symptoms began last Tuesday. Proceed to OR today for dx laparoscopy, lysis of adhesions, possible laparotomy. Discussed again in detail and she understands and desires to proceed. RejiSharath king MD Jan 28, 2017 08:54
--- NOTE | 2017-01-28 10:08 | HHI.PR ---
Subjective Remarks Pt still not passing any gas and no BM She had out about 1400cc from NGT overnight. No nausea or vomiting Objective Vitals Vital Signs Date Time Temp Pulse Resp B/P (MAP) Pulse Ox O2 Delivery O2 Flow Rate FiO2 01/28/17 08:00 97.8 96 18 166/84 (111) 98 01/28/17 00:17 96.9 91 18 145/80 (101) 95 01/27/17 20:37 97.3 78 16 123/70 (87) 96 01/27/17 18:48 01/27/17 14:52 01/27/17 12:00 97.2 98 14 148/94 (112) 99 Result Diagram: 01/27/17 0552 01/28/17 0626 Other Results Laboratory Tests Test 01/27/17 05:52 01/28/17 06:26 White Blood Count 10.1 TH/MM3 Red Blood Count 4.33 MIL/MM3 Hemoglobin 13.0 GM/DL Hematocrit 38.3 % Mean Corpuscular Volume 88.5 FL Mean Corpuscular Hemoglobin 29.9 PG Mean Corpuscular Hemoglobin Concent 33.8 % Red Cell Distribution Width 12.8 % Platelet Count 415 TH/MM3 Mean Platelet Volume 8.0 FL Neutrophils (%) (Auto) 76.2 % Lymphocytes (%) (Auto) 15.4 % Monocytes (%) (Auto) 7.2 % Eosinophils (%) (Auto) 0.9 % Basophils (%) (Auto) 0.3 % Neutrophils # (Auto) 7.8 TH/MM3 Lymphocytes # (Auto) 1.6 TH/MM3 Monocytes # (Auto) 0.7 TH/MM3 Eosinophils # (Auto) 0.1 TH/MM3 Basophils # (Auto) 0.0 TH/MM3 CBC Comment DIFF FINAL Differential Comment Blood Urea Nitrogen 32 MG/DL 21 MG/DL Creatinine 0.87 MG/DL 0.73 MG/DL Random Glucose 81 MG/DL 75 MG/DL Total Protein 6.9 GM/DL Albumin 3.2 GM/DL Calcium Level 8.5 MG/DL 8.6 MG/DL Alkaline Phosphatase 106 U/L Aspartate Amino Transf (AST/SGOT) 18 U/L Alanine Aminotransferase (ALT/SGPT) 17 U/L Total Bilirubin 0.6 MG/DL Sodium Level 140 MEQ/L 139 MEQ/L Potassium Level 3.4 MEQ/L 3.8 MEQ/L Chloride Level 95 MEQ/L 101 MEQ/L Carbon Dioxide Level 31.5 MEQ/L 25.8 MEQ/L Anion Gap 14 MEQ/L 12 MEQ/L Estimat Glomerular Filtration Rate 64 ML/MIN 78 ML/MIN Imaging Last Impressions Abdomen X-Ray 01/27/17 0000 Signed Impressions: Service Date/Time: January 11:14 - CONCLUSION: 1. There continues to be moderate distended loops of small bowel in the midabdomen characteristics of a small bowel obstruction. The pattern appears to be slightly improved compared to the prior study. 2. NG tube in the stomach. Varghese Hannon MD Abdomen/Pelvis CT 01/25/17 1806 Signed Impressions: Service Date/Time: Wednesday, January 25, 2017 20:05 - CONCLUSION: Extensive small bowel obstruction and the transition zone is somewhere in distal ileum not present on the prior exam Yoli Orta MD Objective Remarks General: NAD, AAOx3 ENT: NG tube in place Chest: CTA Cardiac: Regular Abd: soft, distended, absent BS Ext: No edema, SCDs in place A/P Problem List: (1) Small bowel obstruction ICD Codes: K56.609 - Unspecified intestinal obstruction, unspecified as to partial versus complete obstruction Status: Acute Plan: - Pt is a 71 y/o female with chronic low back pain who recently underwent L4-L5 interbody fusion on 01/12/17 and was then discharged to rehab. - Pt did well at rehab but had constipation. When she was discharged from rehab she took several laxative and did move her bowels several times. Her last BM was 01/25. She then began having increased abd distension, bloating, and pain. This prompted her to be evaluated in the ED at [facility]- on - CT Abd/pelvis (01/25) --> Extensive small bowel obstruction and the transition zone is somewhere in distal ileum not present on the prior exam - General Surgery is following. - Pt had NGT placed but has not improved much clinically. - KUB (01/27) --> There continues to be moderate distended loops of small bowel in the midabdomen characteristics of a small bowel obstruction. The pattern appears to be slightly improved compared to the prior study. NG tube in the stomach. - Pt was transferred to [facility] for surgical intervention. - Pt is planned for Exploratory Laparoscopy today with Dr. Mendoza - Cont. IVF - Supportive care - DVT prophylaxis with SCDs (2) Hypokalemia ICD Codes: E87.6 - Hypokalemia Status: Acute Plan: - Improved. - Monitor labs (3) Acute renal insufficiency ICD Codes: N28.9 - Disorder of kidney and ureter, unspecified Status: Acute Plan: - Improving with IVF hydration - Monitor labs (4) Type 2 diabetes mellitus ICD Codes: E11.9 - Type 2 diabetes mellitus without complications Status: Chronic Plan: - NovoLog SSI while NPO - Accu checks (5) S/P lumbar fusion ICD Codes: Z98.1 - Arthrodesis status Plan: - Pt s/p lumbar L4-5 transforaminal interbody fusion; L4 and L5 decompressive laminectomy with facetectomy and microdiscectomy; L4-5 pedicle screw fixation; L4-5 interbody cage placement on 01/12/[address] Mendez - PT - LSO brace when out of bed Assessment and Plan Patient examined. Assessment and plan formulated with Mindi Enriquez PA-C. I agree with the above. sbo. going to OR today. ngt with high output. supportive care. Mindi Enriquez Jan 28, 2017 10:08 Duane Baltazar MD Jan 28, 2017 12:29
[2017-01-28 11:59] VITALS: BP 130/69; PULSE 82; RESP 16; TEMP 96.7; O2SAT 97
[2017-01-28] MEDS ORDERED: KETOROLAC TROMETHAMINE 30 MG/ML (IVP) VIAL IV PUSH ONE (12:00)
[2017-01-28] MEDS ORDERED: PROPOFOL 200 MG/20 ML AMP IV ONE (12:00)
[2017-01-28] MEDS ORDERED: LIDOCAINE HCL 1% PF 5 ML AMPULE OTHER ONE (12:00)
[2017-01-28] MEDS ORDERED: GLYCOPYRROLATE 1 MG/5 ML VIAL IV PUSH ONE (12:00)
[2017-01-28] MEDS ORDERED: NEOSTIGMINE 3 MG/3 ML SYR IV ONE (12:00)
[2017-01-28] MEDS ORDERED: ONDANSETRON HCL 4 MG/2 ML VIAL IV PUSH ONE (12:00)
[2017-01-28] MEDS ORDERED: SUCCINYLCHOLINE CHLORIDE 100 MG/5 ML SYRINGE IV PUSH ONE (12:00)
[2017-01-28] MEDS ORDERED: ROCURONIUM INJ 50 MG/5 ML SYRINGE IV PUSH ONE (12:00)
[2017-01-28] MEDS ORDERED: DEXAMETHASONE SOD PHOS 4 MG/ML VIAL IV ONE ×2 (12:00)
[2017-01-28] MEDS ORDERED: ACETAMINOPHEN 1000 MG/100 ML 100 ML IV ONE (12:51)
[2017-01-28] MEDS ORDERED: BUPIVACAINE/EPINEPHRINE 0.25% 50 ML VIAL ONE (13:14)
--- NOTE | 2017-01-28 15:57 | PD.OP ---
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 There was a Meckel's diverticulum which was not currently inflamed adhesed to the mesentery near the area of stricture. This appeared to have caused inflammation and scarring with stricture in the past. The small bowel resection included both the small bowel stricture and the Meckel's diverticulum and approximately 30 cm of small bowel. Procedure in detail: The patient was taken to the operating room and placed in a supine position. Gen. endotracheal anesthesia was induced and the abdomen was prepped and draped in usual sterile fashion. Surgical timeout was performed to verify correct patient procedure and site. Local anesthetic injected in the skin and subcutaneous cutaneous tissue in the left upper quadrant 5 mm incision made. The 5 mm trocar inserted directly under laparoscopic visualization. The abdomen was insufflated to 15 mmHg with CO2 gas which the patient tolerated well. Two 5 mm ports were placed in the left lower abdomen. There was significantly dilated bowel present as well as a fair amount of decompressed small bowel. A transition point was noted in the ileum. There was a Meckel's diverticulum adherent to the mesentery of another loop of small bowel. The transition point was at the loop of small bowel which was narrowed. Adhesions were taken down sharply between the Meckel's and the small bowel loop. However, there continued to be persistent narrowing. I therefore decided to perform laparotomy. Next The trochars were removed and a lower midline incision created. Dissection carried out through subcutaneous tissues tissue and fascia in the midline with electrocautery. Peritoneum was bluntly entered. On further evaluation the area of small bowel was strictured most likely secondary to prior history of Meckel's diverticulitis with inflammation and scarring in this loop of small bowel. The stricture and the Meckel's was approximately 30 cm apart. I felt that both areas should be removed and therefore resected this portion of small bowel. The small bowel was taken proximally and distally with a 75 mm blue load stapler. A [id number] functional end-to-end anastomosis was created with a 75 mm blue load ROSA. The end enterotomy was closed with a TX 60. There was some oozing from the external staple line and this was oversewed. The anastomosis itself had no bleeding or hematoma and no tension. The suture was placed at the end of the staple line. The mesenteric defect was closed with running 3-0 silk suture. At this point the bowel was placed back into the abdomen and the fascia closed with running #1 PDS suture. The wound was irrigated and skin closed with wide skin stapler. The port sites were closed with subcuticular 4-0 Monocryl mass on Steri-Strips. The patient tolerated the procedure well was extubated and taken to PACU in stable condition. Sharath Mendoza MD Jan 28, 2017 15:57
[2017-01-28 16:00] VITALS: BP 130/69; PULSE 82; RESP 16; TEMP 97.7; O2SAT 97
[2017-01-28] MEDS ORDERED: DO NOT ADM ANY ANTICOAGULANT DRUGS PRN (16:01)
[2017-01-28] MEDS ORDERED: *morphine SULFATE 8 MG/ML PERIprocedure ONLY ONE (16:13)
[2017-01-28] MEDS ORDERED: *MEPERIDINE 25 MG INJ VIAL PERIprocedural Use ONLY ONE (16:25)
[2017-01-28] MEDS: HYDROmorphone HCL PF 1 MG/ML VIAL IV PRN (16:54)
[2017-01-28] MEDS: SODIUM CHLORIDE 0.9% FLUSH 10 ML FLUSH IV FLUSH PRN (17:17)
[2017-01-28] MEDS: KETOROLAC TROMETHAMINE 30 MG/ML (IVP) VIAL IV PUSH SCH ×2 (17:17→22:49)
[2017-01-28 20:29] VITALS: BP 150/84; PULSE 82; RESP 18; TEMP 95.9; O2SAT 95
[2017-01-29 00:11] VITALS: BP 160/80; PULSE 91; RESP 16; TEMP 96.9; O2SAT 96
[2017-01-29] MEDS: KETOROLAC TROMETHAMINE 30 MG/ML (IVP) VIAL IV PUSH SCH ×4 (05:00→23:56)
[2017-01-29] MEDS: NS + KCL 20 MEQ INJ 1,000 ML IV SCH ×4 (05:00→23:56)
[2017-01-29 06:56] LABS: BICARBONATE 22.1 MEQ/L (21.0-32.0); MAGNESIUM 1.6 MG/DL (1.5-2.5); POTASSIUM 4.7 MEQ/L (3.5-5.1)
[2017-01-29 08:00] VITALS: BP 140/75; PULSE 73; RESP 18; TEMP 98; O2SAT 96
[2017-01-29] MEDS: INSULIN ASPART SUPPLEMENTAL SCALE SQ SCH ×4 (08:00→21:00)
--- NOTE | 2017-01-29 08:20 | HHI.PR ---
Subjective Subjective Notes pt c/o bloating no flatus Objective Vitals/I&O Vital Signs Date Time Temp Pulse Resp B/P (MAP) Pulse Ox O2 Delivery O2 Flow Rate FiO2 01/29/17 08:00 98.0 73 18 140/75 (96) 96 01/28/17 17:00 Room Air Labs Laboratory Tests Test 01/29/17 04:02 Blood Urea Nitrogen 17 Creatinine 0.86 Random Glucose 242 Calcium Level 7.7 Magnesium Level 1.6 Sodium Level 133 Potassium Level 4.7 Chloride Level 102 Carbon Dioxide Level 22.1 Anion Gap 9 Estimat Glomerular Filtration Rate 65 Date/Time Source Procedure Growth Status 01/25/17 22:55 Urine Clean Catch Urine Culture - Final NO GROWTH IN 48 HOURS. Complete Radiology Last Impressions Abdomen X-Ray 01/26/17 0000 Signed Impressions: Service Date/Time: Thursday, January 26, 2017 06:48 - CONCLUSION: Persistent but slightly improved small bowel ileus. Nasogastric tube in good position. Osvaldo Hoover MD Abdomen/Pelvis CT 01/25/17 1806 Signed Impressions: Service Date/Time: Wednesday, January 25, 2017 20:05 - CONCLUSION: Extensive small bowel obstruction and the transition zone is somewhere in distal ileum not present on the prior exam Yoli Orta MD Abdomen: Post-op tenderness Wound Wound : Wound Location: Abdomen Appearance: Clean & Dry A/P Assessment and Plan s/p ex lap sbr pod #1 doing well ambulate in [facility] Jose De Jesus Fenton MD Jan 29, 2017 08:20
[2017-01-29] MEDS: LEVOFLOXACIN 750 MG PREMIX INJ 150 ML IV SCH (08:32)
[2017-01-29] MEDS: PANTOPRAZOLE SODIUM 40 MG VIAL IV PUSH SCH (08:34)
--- NOTE | 2017-01-29 10:55 | HHI.PR ---
Subjective Remarks doing ok. Objective Vitals heart reg lung cta abd surgical tenderness. ext no edema Vital Signs Date Time Temp Pulse Resp B/P (MAP) Pulse Ox O2 Delivery O2 Flow Rate FiO2 01/29/17 08:00 98.0 73 18 140/75 (96) 96 01/29/17 00:11 96.9 91 16 160/80 (106) 96 01/28/17 20:29 95.9 82 18 150/84 (106) 95 01/28/17 18:17 18 01/28/17 17:00 98.2 93 17 159/87 (111) 96 Room Air 01/28/17 16:45 91 16 157/87 (110) 96 Room Air 01/28/17 16:30 86 17 166/88 (114) 96 Room Air 01/28/17 16:15 91 16 163/88 (113) 96 Room Air 01/28/17 16:03 98.1 90 19 157/89 (111) 96 Room Air 01/28/17 16:00 () 01/28/17 11:59 96.7 82 16 130/69 (89) 97 Result Diagram: 01/27/17 0552 01/29/17 0402 Imaging Last Impressions Abdomen X-Ray 01/27/17 0000 Signed Impressions: Service Date/Time: January 11:14 - CONCLUSION: 1. There continues to be moderate distended loops of small bowel in the midabdomen characteristics of a small bowel obstruction. The pattern appears to be slightly improved compared to the prior study. 2. NG tube in the stomach. Varghese Hannon MD Abdomen/Pelvis CT 01/25/17 1806 Signed Impressions: Service Date/Time: Wednesday, January 25, 2017 20:05 - CONCLUSION: Extensive small bowel obstruction and the transition zone is somewhere in distal ileum not present on the prior exam Yoli Orta MD A/P Problem List: (1) Small bowel obstruction ICD Codes: K56.609 - Unspecified intestinal obstruction, unspecified as to partial versus complete obstruction Status: Acute Plan: - Pt is a 71 y/o female with chronic low back pain who recently underwent L4-L5 interbody fusion on 01/12/17 and was then discharged to rehab. - Pt did well at rehab but had constipation. When she was discharged from rehab she took several laxative and did move her bowels several times. Her last BM was Tuesday, 01/25. She then began having increased abd distension, bloating, and pain. This prompted her to be evaluated in the ED at [facility] on - CT Abd/pelvis (01/25) --> Extensive small bowel obstruction and the transition zone is somewhere in distal ileum not present on the prior exam - General Surgery is following. - Pt had NGT placed but has not improved much clinically. - KUB (01/27) --> There continues to be moderate distended loops of small bowel in the midabdomen characteristics of a small bowel obstruction. The pattern appears to be slightly improved compared to the prior study. NG tube in the stomach. - Pt was transferred to [facility] for surgical intervention. - 01/28. small bowel resection of stricture/meckels diverticulum. lysis of adhesions - Cont. IVF. clears. -ambulate - Supportive care - DVT prophylaxis with SCDs (2) Hypokalemia ICD Codes: E87.6 - Hypokalemia Status: Acute Plan: - Improved. - Monitor labs (3) Acute renal insufficiency ICD Codes: N28.9 - Disorder of kidney and ureter, unspecified Status: Acute Plan: - Improving with IVF hydration - Monitor labs (4) Type 2 diabetes mellitus ICD Codes: E11.9 - Type 2 diabetes mellitus without complications Status: Chronic Plan: - NovoLog SSI while NPO - Accu checks (5) S/P lumbar fusion ICD Codes: Z98.1 - Arthrodesis status Plan: - Pt s/p lumbar L4-5 transforaminal interbody fusion; L4 and L5 decompressive laminectomy with facetectomy and microdiscectomy; L4-5 pedicle screw fixation; L4-5 interbody cage placement on 01/12/[address] Mendez - PT - LSO brace when out of bed Duane Baltazar MD Jan 29, 2017 10:55
[2017-01-29 12:00] VITALS: BP 109/74; PULSE 79; RESP 18; TEMP 96.7; O2SAT 100
[2017-01-29 16:00] VITALS: BP 138/77; PULSE 83; RESP 18; TEMP 97.8; O2SAT 100
[2017-01-29 21:45] VITALS: BP 149/84; PULSE 85; RESP 18; TEMP 97.8; O2SAT 98
[2017-01-30 01:01] VITALS: BP 140/72; PULSE 80; RESP 18; TEMP 98.3; O2SAT 96
[2017-01-30] MEDS: KETOROLAC TROMETHAMINE 30 MG/ML (IVP) VIAL IV PUSH SCH ×2 (05:55→11:37)
[2017-01-30] MEDS: INSULIN ASPART SUPPLEMENTAL SCALE SQ SCH ×2 (08:00→11:40)
[2017-01-30] MEDS: PANTOPRAZOLE SODIUM 40 MG VIAL IV PUSH SCH (09:14)
[2017-01-30] MEDS: LEVOFLOXACIN 750 MG PREMIX INJ 150 ML IV SCH (09:14)
[2017-01-30] MEDS: NS + KCL 20 MEQ INJ 1,000 ML IV SCH (09:14)
--- NOTE | 2017-01-30 11:09 | HHI.PR ---
Subjective Remarks Pt tolerating clear liquid diet well Some minimal flatus, no BM Pt is ambulating without difficulty No significant abdominal pain Objective Vitals Vital Signs Date Time Temp Pulse Resp B/P (MAP) Pulse Ox O2 Delivery O2 Flow Rate FiO2 01/30/17 01:01 98.3 80 18 140/72 (94) 96 01/29/17 21:45 97.8 85 18 149/84 (105) 98 01/29/17 16:00 97.8 83 18 138/77 (97) 100 01/29/17 12:00 96.7 79 18 109/74 (86) 100 01/30/17 01/30/17 01/31/17 15:00 23:00 07:00 Intake Total 298 ml Balance 298 ml IV Total 298 ml Result Diagram: 01/27/17 0552 01/29/17 0402 Other Results Laboratory Tests Test 01/29/17 04:02 Blood Urea Nitrogen 17 MG/DL Creatinine 0.86 MG/DL Random Glucose 242 MG/DL Calcium Level 7.7 MG/DL Magnesium Level 1.6 MG/DL Sodium Level 133 MEQ/L Potassium Level 4.7 MEQ/L Chloride Level 102 MEQ/L Carbon Dioxide Level 22.1 MEQ/L Anion Gap 9 MEQ/L Estimat Glomerular Filtration Rate 65 ML/MIN Imaging Last Impressions Abdomen X-Ray 01/27/17 0000 Signed Impressions: Service Date/Time: January 11:14 - CONCLUSION: 1. There continues to be moderate distended loops of small bowel in the midabdomen characteristics of a small bowel obstruction. The pattern appears to be slightly improved compared to the prior study. 2. NG tube in the stomach. Varghese Hannon MD Abdomen/Pelvis CT 01/25/17 1806 Signed Impressions: Service Date/Time: Wednesday, January 25, 2017 20:05 - CONCLUSION: Extensive small bowel obstruction and the transition zone is somewhere in distal ileum not present on the prior exam Yoli Orta MD Objective Remarks General: NAD, AAOx3 Chest: CTA Cardiac: Regular Abd: Minimal BS, soft, mildly distended, nontender, steristrip in place on 3 trocar incision sites, midline abdominal bandage is c/d/i A/P Problem List: (1) Small bowel obstruction ICD Codes: K56.609 - Unspecified intestinal obstruction, unspecified as to partial versus complete obstruction Status: Acute Plan: - Pt is a 71 y/o female with chronic low back pain who recently underwent L4-L5 interbody fusion on 01/12/17 and was then discharged to rehab. - Pt did well at rehab but had constipation. When she was discharged from rehab she took several laxative and did move her bowels several times. Her last BM was Tuesday, 01/25. She then began having increased abd distension, bloating, and pain. This prompted her to be evaluated in the ED at [facility] [place] on - CT Abd/pelvis (01/25) --> Extensive small bowel obstruction and the transition zone is somewhere in distal ileum not present on the prior exam - General Surgery is following. - Pt had NGT placed but has not improved much clinically. - KUB (01/27) --> There continues to be moderate distended loops of small bowel in the midabdomen characteristics of a small bowel obstruction. The pattern appears to be slightly improved compared to the prior study. NG tube in the stomach. - Pt was transferred to [facility] for surgical intervention. - Pt underwent small bowel resection of stricture/Meckel diverticulum with lysis of adhesions on 01/28/[address] Mendoza - Pt tolerating clears, diet advancement per GS - Stop IVF - Ambulate - Supportive care - DVT prophylaxis with SCDs (2) Hypokalemia ICD Codes: E87.6 - Hypokalemia Status: Acute Plan: - Improved. - Monitor labs (3) Acute renal insufficiency ICD Codes: N28.9 - Disorder of kidney and ureter, unspecified Status: Acute Plan: - Improved with IVF hydration - Monitor labs (4) Type 2 diabetes mellitus ICD Codes: E11.9 - Type 2 diabetes mellitus without complications Status: Chronic Plan: - NovoLog SSI while NPO - Accu checks (5) S/P lumbar fusion ICD Codes: Z98.1 - Arthrodesis status Plan: - Pt s/p lumbar L4-5 transforaminal interbody fusion; L4 and L5 decompressive laminectomy with facetectomy and microdiscectomy; L4-5 pedicle screw fixation; L4-5 interbody cage placement on 01/12/[address] Mendez - PT - LSO brace when out of bed Mindi Enriquez 22, 2017 11:09
[2017-01-30 12:00] VITALS: BP 165/86; PULSE 98; RESP 17; TEMP 97.7; O2SAT 99
--- NOTE | 2017-01-30 12:43 | HHI.DCPOC ---
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 Avoid second hand smoke Call the 24-hour hour crisis hotline for domestic abuse at Duane Baltazar MD Jan 30, 2017 12:43
--- NOTE | 2017-01-30 12:50 | HHI.DS ---
Discharge Summary Admission Date Jan 25, 2017 at 21:18 Discharge Date: Jan 30, 2017 Admitting Diagnosis SBO; HANSA; Hypokalemia;hyponatremia (1) Small bowel obstruction Diagnosis: Principal ICD Codes: K56.609 - Unspecified intestinal obstruction, unspecified as to partial versus complete obstruction Status: Acute (2) Meckel diverticulum Diagnosis: Principal ICD Codes: Q43.0 - Meckel's diverticulum (displaced) (hypertrophic) (3) Small bowel stricture Diagnosis: Principal ICD Codes: K56.699 - Other intestinal obstruction unspecified as to partial versus complete obstruction (4) Hypokalemia Diagnosis: Principal ICD Codes: E87.6 - Hypokalemia Status: Acute (5) Acute renal insufficiency Diagnosis: Principal ICD Codes: N28.9 - Disorder of kidney and ureter, unspecified Status: Acute (6) Type 2 diabetes mellitus Diagnosis: Secondary ICD Codes: E11.9 - Type 2 diabetes mellitus without complications Status: Chronic (7) S/P lumbar fusion Diagnosis: Secondary ICD Codes: Z98.1 - Arthrodesis status CBC/BMP: 01/27/17 0552 01/29/17 0402 Significant Findings Laboratory Tests Test 01/28/17 06:26 01/29/17 04:02 Blood Urea Nitrogen 21 MG/DL (7-18) Estimat Glomerular Filtration Rate 78 ML/MIN (>89) 65 ML/MIN (>89) Random Glucose 242 MG/DL (74-106) Calcium Level 7.7 MG/DL (8.5-10.1) Sodium Level 133 MEQ/L (136-145) PE at Discharge General: NAD, AAOx3 Chest: CTA Cardiac: Regular Abd: Minimal BS, soft, mildly distended, nontender, steristrip in place on 3 trocar incision sites, midline abdominal bandage is c/d/i Hospital Course (1) Small bowel obstruction - Pt is a 71 y/o female with chronic low back pain who recently underwent L4-L5 interbody fusion on 01/12/17 and was then discharged to rehab. - Pt did well at rehab but had constipation. When she was discharged from rehab she took several laxative and did move her bowels several times. Her last BM was Tuesday, 01/25. She then began having increased abd distension, bloating, and pain. This prompted her to be evaluated in the ED [place] [facility] [place] Abd/pelvis (01/25) --> Extensive small bowel obstruction and the transition zone is somewhere in distal ileum not present on the prior exam - General Surgery is following. - Pt had NGT placed but has not improved much clinically. - KUB (01/27) --> There continues to be moderate distended loops of small bowel in the midabdomen characteristics of a small bowel obstruction. The pattern appears to be slightly improved compared to the prior study. NG tube in the stomach. - Pt was transferred to [facility] for surgical intervention. - Pt underwent small bowel resection of stricture/Meckel diverticulum with lysis of adhesions on 01/28/[address] Mendoza Pt tolerating clears. she was passing flatus no bm. she insisted on d/c home. full liquids now and advance slowly over next day or 2. Called gen surg who was ok with d/c and close f/u. (2) Hypokalemia (3) Acute renal insufficiency - Improved with IVF hydration - Monitor labs (4) Type 2 diabetes mellitus (5) S/P lumbar fusion - Pt s/p lumbar L4-5 transforaminal interbody fusion; L4 and L5 decompressive laminectomy with facetectomy and microdiscectomy; L4-5 pedicle screw fixation; L4-5 interbody cage placement on 01/12/[address] Mendez - PT - LSO brace when out of bed Pt Condition on Discharge: Stable Discharge Disposition: Discharge Home Discharge Instructions DIET: Follow Instructions for: Full Liquid Diet Additional Diet Instructions: advance to soft diet in next 48hrs as tolerated Activities you can perform: Regular-No Restrictions Follow up Referrals: Surgical - 1 Week with Sharath Mendoza MD Continued Medications: Glucosamine (Glucosamine) 1,000 Mg Cap 1000 MG PO DAILY for Herbal Supplements, CAP 0 Refills Metformin (Metformin) 500 Mg Tab 500 MG PO DAILY for Blood Sugar Management, #30 TAB 0 Refills With a meal Multiple Vitamin (Multiple Vitamin) 1 Tab 1 TAB PO DAILY for Nutritional Supplement, TAB 0 Refills Pantoprazole (Pantoprazole) 40 Mg Tab 40 MG PO DAILY PRN for REFLUX, #30 TAB 0 Refills Phenazopyridine (Pyridium) 100 Mg Tab 100 MG PO Q8H PRN for DYSURIA, TAB 0 Refills Discontinued Medications: Cyclobenzaprine (Flexeril) 10 Mg Tab 10 MG PO TID for Muscle Spasm, #90 TAB 0 Refills Gabapentin (Gabapentin) 300 Mg Cap 300 MG PO TID for Pain Management, #90 CAP 0 Refills Hydrocodone-Acetaminophen (Lortab) 10-325 Mg Tab 1 TAB PO Q4H PRN for PAIN, #60 TAB 0 Refills Duane Baltazar MD Jan 30, 2017 12:50
== END 2017-01-30 15:10 | disposition home or self-care (01) | DRG 330 ==
LOC: PHED 17:52 → PHEDA 21:18 → PH3A 23:14 → N07A 01-27 18:25
PROVIDERS: ADMIT Hospitalist; ATTEND Hospitalist
PROC: 0D9670Z Drainage of Stomach with Drainage Device, Via Natural or Artificial Opening (ICD-10-PCS; 2017-01-25)
PROC: 0DB80ZZ Excision of Small Intestine, Open Approach (ICD-10-PCS; principal; 2017-01-28 14:02)
PROC: 0DN88ZZ Release Small Intestine, Via Natural or Artificial Opening Endoscopic (ICD-10-PCS; 2017-01-28 14:02)
DX: K56.50 Intestinal adhesions [bands], unspecified as to partial versus complete obstruction (principal); E87.1 Hypo-osmolality and hyponatremia; E11.9 Type 2 diabetes mellitus without complications; E87.6 Hypokalemia; Z79.84 Long term (current) use of oral hypoglycemic drugs; Z98.1 Arthrodesis status; G89.29 Other chronic pain; M54.5 Low back pain; F17.210 Nicotine dependence, cigarettes, uncomplicated; E86.0 Dehydration; Q43.0 Meckel's diverticulum (displaced) (hypertrophic); N28.9 Disorder of kidney and ureter, unspecified
CPT/HCPCS: 74000; 74020; 74177; 76937; 80048; 80053; 81001; 82948; 83690; 83735; 85025; 87086; 88307; 93005; 96361; 96374; C9113; J0131; J0330; J1100; J1170; J1885; J1956; J2175; J2270; J2405; J2710; J3010; J3480; J7030; Q9963; Q9967